=== PATIENT | female | born 1980 | race Caucasian/White ===

== ENCOUNTER 2020-07-20 14:11 | Outpatient (REF) | payer OTHER, SELFPAY ==
[2020-07-20 14:56] LABS: Eosinophils Percent Auto 0.2 % (0-4); Hematocrit 34.7 % (37-47); Hemoglobin 10.4 g/dl (12.0-16.0); Imm Gran Abs Auto 0.01 X10*3/uL (0.00-0.03); Imm Gran Pct Auto 0.2 % (0.0-0.4); MANUAL DIFF FLAG SCAN; SCAN SMEAR FLAG 1
[2020-07-20 14:58] LABS: Basophils Percent Auto 0.4 % (0-2); Lymphocytes Absolute Auto 1.2 X10*3/uL (1.2-4.9); Lymphocytes Percent Auto 24.8 % (20-40); Mean Corpuscular Hemoglobin 22.1 pg (27.0-33.0); Mean Corpuscular Volume 73.7 fL (80-98); Mean Platelet Volume 11.9 fL (9.4-12.3); Monocytes Absolute Auto 0.5 X10*3/uL (0.1-1.2); Monocytes Percent Auto 10.6 % (2-11); Neutrophils Percent Auto 63.8 % (45-73); Platelet Count 296 X10*3/uL (160-400); Red Blood Count 4.71 X10*6/uL (4.20-5.50); Red Cell Distribution Width 18.6 % (11.0-16.0); White Blood Count 4.7 X10*3/uL (4.8-10.8)
[2020-07-20 14:59] LABS: PLT ABN DIST 1
[2020-07-20 15:18] LABS: Alanine Aminotransferase 11 U/L (0-31); Albumin Level 4.6 g/dL (3.5-5.0); Alkaline Phosphatase 88 U/L (39-117); Anion Gap 12 (12-20); Aspartate Amino Transferase 17 U/L (5-31); Bilirubin Total 0.5 mg/dL (0.0-1.0); Blood Urea Nitrogen 13 mg/dL (9-16); Calcium 9.4 mg/dL (8.4-10.2); Carbon Dioxide 26 mmol/L (22-29); Chloride 106 mmol/L (96-108); Cholesterol 214 mg/dL; Estimated Glomerular Filt Rate > 60; Glucose Random 88 mg/dL (60-115); HDL Cholesterol 79 mg/dL; LDL Cholesterol Calculated 123 mg/dl; Potassium 4.5 mmol/l (3.3-5.1); Sodium 139 mmol/L (135-145); Total Protein 7.9 g/dL (6.5-8.0); Triglycerides 64 mg/dL
[2020-07-20 15:24] LABS: Iron 22 mcg/dL (30-160)
[2020-07-20 15:38] LABS: Ferritin 2 ng/mL (10-250); Thyroid Stimulating Hormone 0.62 mIU/mL (0.32-4.0)
[2020-07-20 15:42] LABS: Vitamin B12 264 pg/mL (200-900)
[2020-07-20 15:46] LABS: Erythrocyte Sedimentation Rate 16 MM/HR (0-20)
[2020-07-20 15:49] LABS: Percent Iron Saturation 4 % (15-50); Total Iron Binding Capacity 569 mcg/dL (228-428); Unsaturated Iron Binding 547 ug/dL
[2020-07-22 03:02] LABS: Lyme Abs Screen <0.90 index
[2020-07-22 18:27] LABS: Anti Nuclear Antibody Screen NEGATIVE (NEGATIVE)
== END 2020-07-20 14:12 | disposition home or self-care (01) ==
LOC: HO.LAB 14:11
PROVIDERS: Absent Provider Internal Medicine; PCP Internal Medicine; Visit Provider Psychiatry & Neurology Neurology
DX: R51.9 Headache, unspecified (principal); M79.7 Fibromyalgia; D50.8 Other iron deficiency anemias; R53.83 Other fatigue
CPT/HCPCS: 36415; 80053; 80061; 82550; 82607; 82728; 83540; 84443; 85025; 85652; 86038; 86039; 86140; 86618

== ENCOUNTER → 2020-08-24 13:52 | Outpatient (BNVA) | payer OTHER, SELFPAY | PROVIDERS: PCP Internal Medicine; Referring Provider Internal Medicine; Visit Provider Student in an Organized Health Care Education/Training Program | DX: Z76.89 Persons encountering health services in other specified circumstances (principal) ==

== ENCOUNTER 2020-09-13 12:39 | Outpatient (REF) | payer OTHER, SELFPAY ==
[2020-09-13 13:18] LABS: MANUAL DIFF FLAG NO
[2020-09-13 13:26] LABS: Basophils Percent Auto 0.4 % (0-2); Eosinophils Absolute Auto 0.1 X10*3/uL (0.0-0.4); Eosinophils Percent Auto 1.8 % (0-4); Hematocrit 39.4 % (37-47); Hemoglobin 12.4 g/dl (12.0-16.0); Imm Gran Abs Auto 0.01 X10*3/uL (0.00-0.03); Imm Gran Pct Auto 0.2 % (0.0-0.4); Lymphocytes Absolute Auto 1.3 X10*3/uL (1.2-4.9); Lymphocytes Percent Auto 29.4 % (20-40); Mean Corpuscular HGB Conc 31.5 g/dl (31.0-35.0); Mean Corpuscular Hemoglobin 24.9 pg (27.0-33.0); Mean Corpuscular Volume 79.3 fL (80-98); Monocytes Absolute Auto 0.4 X10*3/uL (0.1-1.2); Monocytes Percent Auto 8.1 % (2-11); Neutrophils Absolute Auto 2.7 X10*3/uL (2.0-8.3); Neutrophils Percent Auto 60.1 % (45-73); Platelet Count 208 X10*3/uL (160-400); Red Blood Count 4.97 X10*6/uL (4.20-5.50); Red Cell Distribution Width 28.8 % (11.0-16.0); White Blood Count 4.5 X10*3/uL (4.8-10.8)
[2020-09-13 13:41] LABS: Alanine Aminotransferase 15 U/L (0-31); Albumin Level 4.6 g/dL (3.5-5.0); Alkaline Phosphatase 81 U/L (39-117); Anion Gap 10 (12-20); Aspartate Amino Transferase 16 U/L (5-31); Bilirubin Total 0.7 mg/dL (0.0-1.0); Blood Urea Nitrogen 14 mg/dL (9-16); C Reactive Protein 0.14 mg/dL (< or = 0.50); Calcium 8.8 mg/dL (8.4-10.2); Carbon Dioxide 28 mmol/L (22-29); Chloride 106 mmol/L (96-108); Estimated Glomerular Filt Rate > 60; Glucose Random 87 mg/dL (60-115); Potassium 4.1 mmol/l (3.3-5.1); Rheumatoid Factor < 15.0 IU/mL (<15.0); Sodium 140 mmol/L (135-145); Total Protein 7.5 g/dL (6.5-8.0)
[2020-09-13 14:09] LABS: Erythrocyte Sedimentation Rate 6 MM/HR (0-20)
[2020-09-14 15:13] LABS: Cyclic Citrullinated Peptide <16 UNITS
[2020-09-14 16:22] LABS: Anti Nuclear Antibody Screen NEGATIVE (NEGATIVE)
[2020-09-15 15:32] LABS: Antibody to SS-A Antigen <1.0 NEG AI (<1.0 NEG); Antibody to SS-B Antigen <1.0 NEG AI (<1.0 NEG)
[2020-09-16 16:27] LABS: Vitamin D 25-OH, D2 <4 ng/mL; Vitamin D 25-OH, D3 12 ng/mL; Vitamin D 25-OH, Total 12 ng/mL (30-100)
== END 2020-09-13 12:40 | disposition home or self-care (01) ==
LOC: HO.LAB 12:39
PROVIDERS: Visit Provider Student in an Organized Health Care Education/Training Program
DX: M25.50 Pain in unspecified joint (principal)
CPT/HCPCS: 36415; 80053; 82306; 85025; 85652; 86038; 86039; 86140; 86200; 86235; 86431

== ENCOUNTER → 2020-10-12 13:59 | Outpatient (BNVA) | payer OTHER, SELFPAY | PROVIDERS: PCP Internal Medicine; Visit Provider Student in an Organized Health Care Education/Training Program | DX: Z76.89 Persons encountering health services in other specified circumstances (principal) ==

== ENCOUNTER 2020-11-10 09:45 | Outpatient (REF) | payer OTHER, SELFPAY ==
[2020-11-10 10:38] LABS: Basophils Percent Auto 0.5 % (0-2); MANUAL DIFF FLAG SCAN; SCAN SMEAR FLAG 1
[2020-11-10 10:40] LABS: Eosinophils Absolute Auto 0.1 X10*3/uL (0.0-0.4); Eosinophils Percent Auto 1.7 % (0-4); Hematocrit 45.5 % (37-47); Imm Gran Abs Auto 0.03 X10*3/uL (0.00-0.03); Imm Gran Pct Auto 0.5 % (0.0-0.4); Lymphocytes Absolute Auto 1.6 X10*3/uL (1.2-4.9); Lymphocytes Percent Auto 26.5 % (20-40); Mean Corpuscular Hemoglobin 28.7 pg (27.0-33.0); Monocytes Absolute Auto 0.5 X10*3/uL (0.1-1.2); Neutrophils Absolute Auto 3.7 X10*3/uL (2.0-8.3); Neutrophils Percent Auto 62.8 % (45-73); PLT ABN DIST 1; Platelet Count 233 X10*3/uL (160-400); Red Blood Count 5.23 X10*6/uL (4.20-5.50); Red Cell Distribution Width 21.8 % (11.0-16.0); White Blood Count 5.9 X10*3/uL (4.8-10.8)
[2020-11-10 11:21] LABS: Alanine Aminotransferase 17 U/L (0-31); Albumin Level 4.6 g/dL (3.5-5.0); Alkaline Phosphatase 104 U/L (39-117); Anion Gap 12 (12-20); Aspartate Amino Transferase 16 U/L (5-31); Bilirubin Total 0.6 mg/dL (0.0-1.0); Blood Urea Nitrogen 16 mg/dL (9-16); Calcium 9.4 mg/dL (8.4-10.2); Carbon Dioxide 26 mmol/L (22-29); Chloride 110 mmol/L (96-108); Estimated Glomerular Filt Rate > 60; Glucose Random 104 mg/dL (60-115); Potassium 4.6 mmol/L (3.3-5.1); Sodium 143 mmol/L (135-145); Total Protein 7.8 g/dL (6.5-8.0)
[2020-11-10 11:35] LABS: Ferritin 11 ng/mL (10-250); Thyroid Stimulating Hormone 1.84 uIU/mL (0.32-4.0)
== END 2020-11-10 09:46 | disposition home or self-care (01) ==
LOC: HO.LAB 09:45
PROVIDERS: PCP Internal Medicine; Visit Provider Internal Medicine
DX: Z00.01 Encounter for general adult medical examination with abnormal findings (principal); D50.8 Other iron deficiency anemias; E03.9 Hypothyroidism, unspecified; G47.00 Insomnia, unspecified
CPT/HCPCS: 36415; 80053; 82728; 84443; 85025

== ENCOUNTER → 2020-12-21 11:41 | Outpatient (BNVA) | payer OTHER, SELFPAY | PROVIDERS: PCP Internal Medicine; Visit Provider Obstetrics & Gynecology ==

== ENCOUNTER 2021-03-09 15:01 | Outpatient (REF) | payer OTHER, SELFPAY ==
--- NOTE | ~2021-03-09 | US_ITS ---
EXAMINATION: PELVIC ULTRASOUND CLINICAL INFORMATION: Menorrhagia COMPARISON: None TECHNIQUE: Transabdominal and transvaginal pelvic ultrasound was performed. Transvaginal exam was performed for better visualization of the uterus and ovaries. FINDINGS: The uterus is anteverted and measures 6.3 x 3 x 3.5 cm in dimension. No focal uterine lesion is seen. There is an IUD in the uterus in satisfactory position. Endometrial thickness measures 1.3 cm. The ovaries are normal-appearing. The right ovary measures 4.5 x 2.7 x 2 cm. The left ovary measures 3.7 x 1.7 x 1.5 cm. There is no fluid in the pelvis. US/US OB pelvic and transvaginal IMPRESSION: IUD in the uterus in satisfactory position. Otherwise unremarkable exam.
== END 2021-03-09 15:02 | disposition home or self-care (01) ==
LOC: HO.US 15:01
PROVIDERS: PCP Internal Medicine; Visit Provider Internal Medicine
DX: N92.0 Excessive and frequent menstruation with regular cycle (principal)
CPT/HCPCS: 76801; 76817

== ENCOUNTER 2021-04-12 09:41 | Day surgery (SDC) | payer OTHER, SELFPAY ==
--- NOTE | ~2021-04-12 | FL_ITS ---
EXAMINATION: XR LUMBAR PUNCTURE CLINICAL INFORMATION: Headache. Rule out pseudotumor cerebri COMPARISON: None TECHNIQUE: Following explaining fluoroscopy-guided lumbar puncture procedure, benefits and risks, written consent was obtained. Patient was placed prone on fluoroscopy table and low back area was cleaned and draped in usual sterile manner. 1% lidocaine was injected at puncture site overlying the L4-L5 disc level. A 22-gauge spinal needle was then inserted from a left anterolateral approach intrathecally. After observing CSF return patient was placed in left lateral decubitus. Opening CSF pressure was obtained. Subsequently fluid was collected in 4 test tubes. Postprocedure stylet was reintroduced and needle withdrawn. Complete hemostasis achieved at puncture site. Patient tolerated procedure extremely well. FINDINGS: On this image lumbar spine does maintain lumbar lordosis. The vertebral heights and alignment is normal. There is no visible bony abnormality. The opening CSF pressure measured 10 cm of water. Approximately 10.5 mL of clear CSF fluid collected in 4 test tubes and sent to lab as requested. FLUOROSCOPY TIME: 1.3 minutes DOSE AREA PRODUCT: 18.684 uGy-m2 (microgray-meter squared) FL/FL guided lumbar puncture LP IMPRESSION: Successful fluoroscopy-guided lumbar puncture performed at L4-L5 disc level.
[2021-04-12 10:14] VITALS: BMI 32.5
[2021-04-12 10:49] LABS: MANUAL DIFF FLAG NO
[2021-04-12 10:52] LABS: Basophils Percent Auto 0.4 % (0-2); Eosinophils Absolute Auto 0.2 X10*3/uL (0.0-0.4); Eosinophils Percent Auto 2.8 % (0-4); Hematocrit 43.2 % (37-47); Hemoglobin 14.6 g/dl (12.0-16.0); Imm Gran Abs Auto 0.02 X10*3/uL (0.00-0.03); Imm Gran Pct Auto 0.3 % (0.0-0.4); Lymphocytes Absolute Auto 1.5 X10*3/uL (1.2-4.9); Lymphocytes Percent Auto 20.6 % (20-40); Mean Corpuscular HGB Conc 33.8 g/dl (31.0-35.0); Mean Corpuscular Hemoglobin 31.5 pg (27.0-33.0); Mean Corpuscular Volume 93.3 fL (80-98); Mean Platelet Volume 12.2 fL (9.4-12.3); Monocytes Absolute Auto 0.6 X10*3/uL (0.1-1.2); Monocytes Percent Auto 8.2 % (2-11); Neutrophils Absolute Auto 4.8 X10*3/uL (2.0-8.3); Neutrophils Percent Auto 67.7 % (45-73); Platelet Count 215 X10*3/uL (160-400); Red Blood Count 4.63 X10*6/uL (4.20-5.50); Red Cell Distribution Width 14.8 % (11.0-16.0)
[2021-04-12 11:04] LABS: Partial Thromboplastin Time 32.6 SEC (24.1-38.0)
[2021-04-12 12:10] VITALS: BP 112/69; PULSE 69; RESP 20; TEMP 36.8; O2SAT 99
[2021-04-12 12:40] VITALS: BP 106/70; PULSE 67; RESP 20; O2SAT 99
[2021-04-12 12:52] LABS: CSF Appearance Clear, Colorless
[2021-04-12 12:53] LABS: CSF Tube # 1
[2021-04-12 13:03] LABS: Glucose CSF 57 mg/dL; Total Protein CSF 59.6 mg/dL (15-45)
[2021-04-12 13:09] VITALS: BP 115/70; PULSE 67; RESP 20; O2SAT 100
[2021-04-12 13:54] LABS: Appearance CSF CLEAR; CSF Monos 16 %; CSF Tube # 4; Color CSF COLORLESS; Lymphocytes CSF 64 %; Neutrophils CSF 20 %; White Blood Cell CSF 2 MM*3
[2021-04-12 13:55] LABS: Red Blood Cell CSF 439 MM*3
[2021-04-12 14:10] VITALS: BP 113/58; PULSE 78; RESP 20; O2SAT 100
[2021-04-12 15:10] VITALS: BP 113/66; PULSE 81; RESP 20; TEMP 36.7; O2SAT 100
== END 2021-04-12 15:20 | disposition home or self-care (01) ==
PROVIDERS: Psychiatry & Neurology Neurology; Radiology Diagnostic Radiology; PCP Internal Medicine; Visit Provider Radiology Diagnostic Radiology
PROC: 009U3ZZ Drainage of Spinal Canal, Percutaneous Approach (ICD-10-PCS; CPT 62270; principal; 2021-04-12 11:00)
DX: R51.9 Headache, unspecified (principal); M79.7 Fibromyalgia; E03.9 Hypothyroidism, unspecified; D50.9 Iron deficiency anemia, unspecified; Z79.899 Other long term (current) drug therapy
CPT/HCPCS: 36415; 62328; 82945; 84157; 85025; 85610; 85730; 87015; 87070; 87205; 89051

== ENCOUNTER 2021-08-16 10:11 | Outpatient (REF) | payer OTHER, SELFPAY ==
[2021-08-16 10:44] LABS: MANUAL DIFF FLAG NO
[2021-08-16 10:59] LABS: Basophils Percent Auto 0.5 % (0-2); Eosinophils Absolute Auto 0.2 X10*3/uL (0.0-0.4); Hematocrit 44.1 % (37.0-47.0); Hemoglobin 14.6 g/dl (12.0-16.0); Imm Gran Abs Auto 0.01 X10*3/uL (0.00-0.03); Imm Gran Pct Auto 0.2 % (0.0-0.4); Lymphocytes Absolute Auto 1.4 X10*3/uL (1.2-4.9); Lymphocytes Percent Auto 24.4 % (20-40); Mean Corpuscular HGB Conc 33.1 g/dl (31.0-35.0); Mean Corpuscular Hemoglobin 31.4 pg (27.0-33.0); Mean Corpuscular Volume 94.8 fL (80.0-98.0); Mean Platelet Volume 12.6 fL (9.4-12.3); Monocytes Absolute Auto 0.5 X10*3/uL (0.1-1.2); Monocytes Percent Auto 9.2 % (2-11); Neutrophils Absolute Auto 3.4 x10*3/uL (2.0-8.3); Neutrophils Percent Auto 61.7 % (45-73); Platelet Count 198 X10*3/uL (160-400); Red Blood Count 4.65 X10*6/uL (4.20-5.50); Red Cell Distribution Width 13.3 % (11.0-16.0); White Blood Count 5.5 X10*3/uL (4.8-10.8)
[2021-08-16 11:40] LABS: Alanine Aminotransferase 16 U/L (0-31); Albumin Level 4.3 g/dL (3.5-5.0); Alkaline Phosphatase 96 U/L (39-117); Anion Gap 11 (12-20); Aspartate Amino Transferase 14 U/L (5-31); Bilirubin Total 0.5 mg/dL (0.0-1.0); Blood Urea Nitrogen 14 mg/dL (9-16); Calcium 9.3 mg/dL (8.4-10.2); Carbon Dioxide 24 mmol/L (22-29); Chloride 109 mmol/L (96-108); Cholesterol 192 mg/dL; Estimated Glomerular Filt Rate > 60; Glucose Random 93 mg/dL (60-115); HDL Cholesterol 77 mg/dL; LDL Cholesterol Calculated 102 mg/dl; Potassium 4.4 mmol/L (3.3-5.1); Sodium 140 mmol/L (135-145); Total Protein 7.3 g/dL (6.5-8.0); Triglycerides 67 mg/dL
[2021-08-16 12:02] LABS: Thyroid Stimulating Hormone 1.56 uIU/mL (0.32-4.0)
== END 2021-08-16 10:12 | disposition home or self-care (01) ==
LOC: HO.LAB 10:11
PROVIDERS: PCP Internal Medicine; Visit Provider Internal Medicine
DX: D50.8 Other iron deficiency anemias (principal); E03.8 Other specified hypothyroidism; M79.7 Fibromyalgia; N92.4 Excessive bleeding in the premenopausal period
CPT/HCPCS: 36415; 80053; 80061; 84443; 85025

== ENCOUNTER → 2021-12-21 14:49 | Outpatient (BNVA) | payer OTHER, SELFPAY | PROVIDERS: PCP Internal Medicine; Referring Provider Internal Medicine; Visit Provider Physician Assistant | DX: Z13.89 Encounter for screening for other disorder (principal) ==

== ENCOUNTER 2021-12-29 12:04 | Outpatient (REF) | payer OTHER, SELFPAY ==
[2021-12-29 13:38] LABS: Alanine Aminotransferase 20 U/L (0-31); Albumin Level 4.3 g/dL (3.5-5.0); Alkaline Phosphatase 91 U/L (39-117); Anion Gap 12 (12-20); Aspartate Amino Transferase 17 U/L (5-31); Bilirubin Total 0.4 mg/dL (0.0-1.0); Blood Urea Nitrogen 13 mg/dL (9-16); Calcium 9.9 mg/dL (8.4-10.2); Carbon Dioxide 29 mmol/L (22-29); Chloride 104 mmol/L (96-108); Estimated Glomerular Filt Rate > 60; Glucose Random 97 mg/dL (60-115); Potassium 4.9 mmol/L (3.3-5.1); Sodium 140 mmol/L (135-145); Total Protein 7.4 g/dL (6.5-8.0)
== END 2021-12-29 12:05 | disposition home or self-care (01) ==
LOC: HO.LAB 12:04
PROVIDERS: PCP Internal Medicine; Visit Provider Internal Medicine
DX: Z00.00 Encounter for general adult medical examination without abnormal findings (principal); M79.7 Fibromyalgia; E03.8 Other specified hypothyroidism; E66.9 Obesity, unspecified; I26.99 Other pulmonary embolism without acute cor pulmonale; Z98.84 Bariatric surgery status
CPT/HCPCS: 36415; 80053; 84443

== ENCOUNTER 2023-01-04 15:52 | Outpatient (REF) | payer OTHER, SELFPAY ==
--- NOTE | ~2023-01-04 | MM_ITS ---
EXAMINATION: MM SCREENING DIGITAL BREAST TOMOSYNTHESIS, BILATERAL CLINICAL INFORMATION: Screening. Asymptomatic. The lifetime risk of breast cancer based on the Tyrer-Cuzick Model is 22.3%. Additional annual screening with breast MRI may be of benefit in women with a score of 20% or greater. COMPARISON: Mammography: 11/01/2021. TECHNIQUE: Digital mammography is performed in craniocaudal and mediolateral oblique views along with computer-aided detection (CAD). Digital breast tomosynthesis is performed in implant-displaced craniocaudal and implant-displaced mediolateral oblique views along with computer-aided detection (CAD). Synthesized 2D images are generated from the tomosynthesis. FINDINGS: There are scattered areas of fibroglandular density (ACR BI-RADS breast composition Category b). On the right breast mediolateral oblique implant displaced view about the deep inferior aspect, there is an asymmetric density which may be postoperative in nature but which I cannot definitely identify on prior study. Recommend spot compression view and possible ultrasound if there is persistence of density. About the inferior aspect of the left breast on nondisplaced mediolateral oblique view, there is an asymmetric density for which I do not definitely see a correlate on prior study. On left middle oblique displaced image, this area may be compressed out. However, it is difficult to tell whether the posterior most aspect of it is included on the image displaced view. Recommend bilateral spot compression views as well as full-field 90 degree imaging on image displaced right breast and nondisplaced left view. MM/MM tomosynthesis screen imp BI IMPRESSION: Bilateral breast densities for further evaluation. ASSESSMENT: BI-RADS 0: Incomplete - Need Additional Imaging Evaluation. RECOMMENDATION: 1. Additional views of the bilateral breasts. 2. Targeted ultrasound if warranted after review of the additional views. 3. Radiology department staff will contact the patient for additional imaging.
== END 2023-01-04 15:53 | disposition home or self-care (01) ==
LOC: HO.MAMMO 15:52
PROVIDERS: Visit Provider Internal Medicine
DX: Z12.31 Encounter for screening mammogram for malignant neoplasm of breast (principal)
CPT/HCPCS: 77063; 77067

== ENCOUNTER 2023-01-11 14:37 | Outpatient (REF) | payer OTHER, SELFPAY ==
--- NOTE | ~2023-01-11 | MM_ITS ---
EXAMINATION: MM DIAGNOSTIC DIGITAL BREAST TOMOSYNTHESIS, BILATERAL CLINICAL INFORMATION: Recall from screening for question of asymmetric density lower left breast and lower right breast. Family history breast cancer, mother. The lifetime risk of breast cancer based on the Tyrer-Cuzick Model is 20%. COMPARISON: Mammography: 01/04/2023, outside mammography 11/01/2021 ([facility]). TECHNIQUE: Bilateral digital mammography is performed in implant displaced spot left MLO view and implant displaced spot right MLO view. In addition, digital breast tomosynthesis is performed in bilateral implant displaced MLO views with synthesized 2-D images are generated from the tomography. FINDINGS: There are scattered areas of fibroglandular density (ACR BI-RADS breast composition Category b). Breast tissue composition borders on predominantly fatty. The additional views are unremarkable. There is no asymmetric density or mass. Results are discussed with the patient at time of visit, using an clinical staff educator. MM/MM tomosynthesis diagnostic BI IMPRESSION: No mammographic evidence of malignancy. ASSESSMENT: BI-RADS 1: Negative RECOMMENDATION: Routine annual mammography screening. This patient's information was entered into a reminder system with a target due date for their next mammogram.
== END 2023-01-11 14:38 | disposition home or self-care (01) ==
LOC: HO.MAMMO 14:37
PROVIDERS: PCP Internal Medicine; Visit Provider Internal Medicine
DX: R92.2 Inconclusive mammogram (principal); Z80.3 Family history of malignant neoplasm of breast
CPT/HCPCS: 77062; 77066

== ENCOUNTER 2023-02-28 13:44 | Outpatient (REF) | payer OTHER, SELFPAY ==
[2023-02-28 14:37] LABS: Rheumatoid Factor < 13.0 IU/mL (<15.0)
[2023-02-28 15:25] LABS: Erythrocyte Sedimentation Rate 10 MM/HR (0-20)
[2023-03-06 14:39] LABS: Anti Nuclear Antibody Screen NEGATIVE (NEGATIVE)
[2023-03-07 10:59] LABS: Cyclic Citrullinated Peptide <16 UNITS
== END 2023-02-28 13:45 | disposition home or self-care (01) ==
LOC: HO.LAB 13:44
PROVIDERS: PCP Internal Medicine; Visit Provider Internal Medicine
DX: F32.4 Major depressive disorder, single episode, in partial remission (principal); M13.0 Polyarthritis, unspecified; M79.7 Fibromyalgia; Z98.84 Bariatric surgery status
CPT/HCPCS: 36415; 85652; 86038; 86200; 86431

== ENCOUNTER 2023-05-07 14:56 | Outpatient (AMB) | payer OTHER, SELFPAY ==
--- NOTE | 2023-05-07 14:59 | A.OFFVIS_ITS ---
Intake VS Expanded 05/07/23 15:00 Height 5 ft 3 in Weight 222 lb BMI 39.3 BP 128/60 Blood Pressure Location Rt brachial Blood Pressure Position Sitting Pulse 95 Pulse Source Pulse Oximeter Temp 96.9 F Temperature Source Tympanic Pulse Oximetry 96 Oxygen Delivery Method Room Air Body Fat 97.6 Body Fat Percentage 44.0 Free Fat Mass 124.2 Muscle Mass 118.0 Visceral Mass 12.0 Water Mass 88.6 BMR 1,740 Intake Visit Reasons: (OV) Re-Est SWL Allergies No Known Allergies Allergy (Verified 05/07/23 15:04) Medication List - Last Reconciled 05/07/23 by Zandra Jackson PA-C amitriptyline 75 mg PO DAILY cholecalciferol (vitamin D3) 1,250 mcg PO QWEEK cyclobenzaprine 10 mg PO BEDTIME duloxetine 50 mg PO DAILY duloxetine 60 mg PO DAILY ibuprofen 600 mg PO Q8H PRN levothyroxine (Synthroid) 125 mcg PO DAILY topiramate 50 mg PO DAILY HPI HPI Comments History of Present Illness Details This is a 41 year old woman s/p open RNYGBP in 2013,with subsequent abdominoplasty who is here to re-start SWL program for revision of GBP. Pre op GBP weight was 258 lbs and lowest weight was 152 lbs, started regain about 7 years ago with most of weight gain in last 3-4 years. She had HELMET BINDER? Aug 2018 at 175.4 lbs used our meal plan for one week - felt hungry ant stopped, She re- started again November 2022 at 223 lbs and did not return for another appt, she did not get labs on UGI done either. She feels she is ready to commit to our program now that she notices how the extra weight effects her medical conditions. She had PE after breast surgery about 14 years ago when on OCP's. Has Mirena IUD in place now. Used anticoagulants for 6 months only. Wakes up at 3 am , bed at 7;30 pm. 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 3:30 am - coffee whole milk , 1 tsp sugar. 5 am - cereal with Lactaid 7:30 am - sandwich or scrambled eggs with water 1pm - rice with meat or pizza, hamburger with water or ocassional Coke. Does not eat vegetables 4:30 pm - meat and root vegetables with rice. water may have a slice or cheese or crackers before going to bed. alcohol- a few beers 3 times per month, no tobacco or marijuana. Exercise - none, has stationary bike. [facility] Medical History (Updated 12/29/21 @ 15:15 by Zandra Jackson PA-C) Fibromyalgia Hypothyroidism Pulmonary embolism Surgical History Gastric bypass status for obesity H/O abdominoplasty H/O breast reconstruction History of appendectomy Family History Mother CVD (cardiovascular disease) Bone cancer HTN (hypertension) Diabetes Thyroid disease Father Bone cancer HTN (hypertension) Diabetes Social History Alcohol intake: current Alcohol intake frequency: holidays/special occasions only Patient Tobacco Use Status: Never used Tobacco Female Reproductive History Menstrual Age of Menarche: 12 Assessment & Plan Assessment & Plan (1) Obesity: Code(s): E66.9 - Obesity, unspecified Plan: This is the patients 3rd time restarting our SWL program for revision of previous GBP. She is aware she will need to lose 22 lbs and complete all pre operative work up. She understands that once she has UGI Dr Quinones will decide whether she is an appropriate candidate for revision surgery. 1. Adequate sleep of 7-8 hours per night discussed 2. Healthy meal plan All meals/MR's need to take 20 minutes to complete coffee with 1% Fairlife milk and no sugar 5 am - 30 gram shake 8 am -bar 1 pm- bshake 4:30 pm- dinner of 4 oz lean protein, 4 oz vegetable, 1 serving fruit Exercise - Cardio 5 d week bicycle for 200 calories. walk 2 miles outside in 45 m inutes for 300 caloires or LS 2 mile videos. The importance of avoiding and breast feeding for at least 18 months after bariatric surgery was discussed in the information session and was reinforced today. Pt will purchase body composition analyzer (recommended list given to patient) and weight herself weekly. Next appt with me in 3 weeks. Text me with any questions and weekly weights. Patient is morbidly obese and is not considered stable at this time.?I spent a total of 45 minutes reviewing/updating records, examining the patient and counseling the patient on weight management as detailed above. (2) Gastric bypass status for obesity: Code(s): Z98.84 - Bariatric surgery status (3) Fibromyalgia: Code(s): M79.7 - Fibromyalgia (4) Hypothyroidism: Code(s): E03.9 - Hypothyroidism, unspecified (5) Pulmonary embolism: Code(s): I26.99 - Other pulmonary embolism without acute cor pulmonale Plan: Remote hisotry 13 years ago after breast surgery while on OCP's. Use d anticoagulation for 6 months only. Orders: Orders Vitamin B12 and Folate Today E03.9 - Hypothyroidism, unspecified, E66.9 - Obesity, unspecified, Z98.84 - Bariatric surgery status Comprehensive Met. Panel Today E03.9 - Hypothyroidism, unspecified, E66.9 - Obesity, unspecified, Z98.84 - Bariatric surgery status C Reactive Protein Today E03.9 - Hypothyroidism, unspecified, E66.9 - Obesity, unspecified, Z98.84 - Bariatric surgery status Ferritin Today E03.9 - Hypothyroidism, unspecified, E66.9 - Obesity, unspecified, Z98.84 - Bariatric surgery status Hemoglobin A1c Today E03.9 - Hypothyroidism, unspecified, E66.9 - Obesity, unspecified, Z98.84 - Bariatric surgery status Insulin Today E03.9 - Hypothyroidism, unspecified, E66.9 - Obesity, unspecified, Z98.84 - Bariatric surgery status IRON PROFILE Today E03.9 - Hypothyroidism, unspecified, E66.9 - Obesity, unspecified, Z98.84 - Bariatric surgery status Lipid Panel Today E03.9 - Hypothyroidism, unspecified, E66.9 - Obesity, unspecified, Z98.84 - Bariatric surgery status PTHI Today E03.9 - Hypothyroidism, unspecified, E66.9 - Obesity, unspecified, Z98.84 - Bariatric surgery status TSH reflex Free T4 Today E03.9 - Hypothyroidism, unspecified, E66.9 - Obesity, unspecified, Z98.84 - Bariatric surgery status Vitamin A Today E03.9 - Hypothyroidism, unspecified, E66.9 - Obesity, unspecified, Z98.84 - Bariatric surgery status Vitamin B1 Today E03.9 - Hypothyroidism, unspecified, E66.9 - Obesity, unspecified, Z98.84 - Bariatric surgery status Vitamin D 25-OH Total Today E03.9 - Hypothyroidism, unspecified, E66.9 - Obesity, unspecified, Z98.84 - Bariatric surgery status Zinc Today E03.9 - Hypothyroidism, unspecified, E66.9 - Obesity, unspecified, Z98.84 - Bariatric surgery status FL upper GI w air Today E03.9 - Hypothyroidism, unspecified, E66.9 - Obesity, unspecified, Z98.84 - Bariatric surgery status Complete Blood Count Auto Diff Today E03.9 - Hypothyroidism, unspecified, E66.9 - Obesity, unspecified, Z98.84 - Bariatric surgery status H Pylori Breath Test Today E03.9 - Hypothyroidism, unspecified, E66.9 - Obesity, unspecified, Z98.84 - Bariatric surgery status US abdomen comp w elastography Today E03.9 - Hypothyroidism, unspecified, E66.9 - Obesity, unspecified, Z98.84 - Bariatric surgery status Referrals Behavioral Health Referral E03.9 - Hypothyroidism, unspecified, E66.9 - Obesity, unspecified, Z98.84 - Bariatric surgery status Nutrition/Dietitian Referral E03.9 - Hypothyroidism, unspecified, E66.9 - Obesity, unspecified, Z98.84 - Bariatric surgery status Coding Level of Care Code Est Pt Level 5 (30107) Diagnoses Obesity E66.9 Gastric bypass status for obesity Z98.84 Fibromyalgia M79.7 Hypothyroidism E03.9 Pulmonary embolism I26.99
[2023-05-07 15:00] VITALS: BP 128/60; PULSE 95; TEMP 36.1; O2SAT 96; BMI 39.3
== END 2023-05-07 15:49 | disposition home or self-care (01) ==
PROVIDERS: PCP Internal Medicine; Visit Provider Physician Assistant
DX: E66.9 Obesity, unspecified (principal); Z68.39 Body mass index [BMI] 39.0-39.9, adult; Z98.84 Bariatric surgery status; M79.7 Fibromyalgia
CPT/HCPCS: 99215

== ENCOUNTER 2023-05-07 14:56 | Outpatient (REF) | payer OTHER, SELFPAY ==
[2023-05-10 12:40] LABS: H Pylori Breath Test Negative (Negative)
== END 2023-05-07 14:57 | disposition home or self-care (01) ==
LOC: HO.LNP 14:56
PROVIDERS: PCP Internal Medicine; Visit Provider Physician Assistant
DX: E66.9 Obesity, unspecified (principal); M79.7 Fibromyalgia; E03.9 Hypothyroidism, unspecified; I26.99 Other pulmonary embolism without acute cor pulmonale; Z98.84 Bariatric surgery status
CPT/HCPCS: 83013

== ENCOUNTER 2023-05-16 07:35 | Outpatient (REF) | payer OTHER, SELFPAY ==
[2023-05-16 08:10] LABS: MANUAL DIFF FLAG NO
[2023-05-16 08:52] LABS: Basophils Percent Auto 0.7 % (0-2); Eosinophils Absolute Auto 0.1 X10*3/uL (0.0-0.4); Eosinophils Percent Auto 2.1 % (0-4); Hematocrit 42.4 % (37.0-47.0); Hemoglobin 14.2 g/dl (12.0-16.0); Imm Gran Abs Auto 0.01 X10*3/uL (0.00-0.03); Imm Gran Pct Auto 0.2 % (0.0-0.4); Lymphocytes Absolute Auto 1.3 X10*3/uL (1.2-4.9); Lymphocytes Percent Auto 23.6 % (20-40); Mean Corpuscular HGB Conc 33.5 g/dl (31.0-35.0); Mean Corpuscular Hemoglobin 29.9 pg (27.0-33.0); Mean Corpuscular Volume 89.3 fL (80.0-98.0); Mean Platelet Volume 12.9 fL (9.4-12.3); Monocytes Absolute Auto 0.4 X10*3/uL (0.1-1.2); Monocytes Percent Auto 7.8 % (2-11); Neutrophils Absolute Auto 3.7 x10*3/uL (2.0-8.3); Neutrophils Percent Auto 65.6 % (45-73); Platelet Count 234 X10*3/uL (160-400); Red Blood Count 4.75 X10*6/uL (4.20-5.50); Red Cell Distribution Width 13.7 % (11.0-16.0); White Blood Count 5.7 X10*3/uL (4.8-10.8)
[2023-05-16 09:02] LABS: Estimated Average Glucose 108 mg/dL; Hemoglobin A1c % 5.4 %
[2023-05-16 09:52] LABS: Alanine Aminotransferase 14 U/L (0-31); Albumin Level 4.3 g/dL (3.5-5.0); Alkaline Phosphatase 114 U/L (39-117); Anion Gap 11 (12-20); Aspartate Amino Transferase 13 U/L (5-31); Bilirubin Total 0.5 mg/dL (0.0-1.0); Blood Urea Nitrogen 12 mg/dL (9-16); C Reactive Protein 0.42 mg/dL (< or = 0.50); Calcium 9.5 mg/dL (8.4-10.2); Carbon Dioxide 25 mmol/L (22-29); Chloride 108 mmol/L (96-108); Cholesterol 177 mg/dL; Estimated Glomerular Filt Rate > 60; Glucose Random 92 mg/dL (60-115); HDL Cholesterol 62 mg/dL; Iron 126 mcg/dL (30-160); LDL Cholesterol Calculated 102 mg/dl; Percent Iron Saturation 32 % (15-50); Potassium 3.8 mmol/L (3.3-5.1); Sodium 140 mmol/L (135-145); Total Iron Binding Capacity 392 mcg/dL (228-428); Total Protein 7.8 g/dL (6.5-8.0); Triglycerides 65 mg/dL; Unsaturated Iron Binding 266 ug/dL
[2023-05-16 10:09] LABS: Ferritin 14 ng/mL (10-250); TSH reflex Free T4 1.06 uIU/mL (0.32-4.0)
[2023-05-16 10:23] LABS: Folate 10.4 ng/mL (> or = 4.0); Vitamin B12 1253 pg/mL (200-900)
[2023-05-16 10:30] LABS: Insulin 9 uU/mL (2-29)
[2023-05-18 16:53] LABS: Calcium (PTHI) 9.3 mg/dL (8.6-10.2); PTHI 43 pg/mL (16-77)
[2023-05-19 18:34] LABS: Zinc 81 mcg/dL (60-130)
[2023-05-21 11:59] LABS: Vitamin B1 9 nmol/L (8-30)
[2023-05-21 17:18] LABS: Vitamin A 31 mcg/dL (38-98)
== END 2023-05-16 07:36 | disposition home or self-care (01) ==
LOC: HO.LAB 07:35
PROVIDERS: PCP Internal Medicine; Visit Provider Physician Assistant
DX: E03.9 Hypothyroidism, unspecified (principal); E66.9 Obesity, unspecified; Z98.84 Bariatric surgery status
CPT/HCPCS: 36415; 80053; 80061; 82306; 82607; 82728; 82746; 83036; 83525; 83540; 83970; 84425; 84443; 84590; 84630; 85025; 86140

== ENCOUNTER 2023-05-22 14:29 | Outpatient (AMB) | payer OTHER, SELFPAY ==
--- NOTE | 2023-05-22 14:41 | A.OFFVIS_ITS ---
Intake VS Expanded 05/22/23 15:35 Height 5 ft 3 in Weight 221 lb BMI 39.1 Intake Visit Reasons: (OV) Initial Nutrition SWL Supervisor Underwriting Clerks Required: Yes Supervisor Underwriting Clerks Name: Jared [email or web address] Information Interpreted: non-clinical & clinical Allergies No Known Allergies Allergy (Verified 05/07/23 15:04) HPI Nutrition Presentation Details Re-est WASTE REDUCTION COORDINATOR weight 05/07/23 222 current weight 221# s/p open RNYGBP in [place] 2013,with subsequent abdominoplasty who is here to re- start SWL program for revision of GBP. Pre op GBP weight was 258 lbs and lowest weight was 152 lbs, started regain about 7 years ago with most of weight gain in last 3-4 years. She had WASTE REDUCTION COORDINATOR? Aug 2018 at 175.4 lbs used our meal plan for one week - felt hungry ant stopped, She re-started again November 2022 at 223 lbs and did not return for another appt, Reason for consult elevated BMI Diet Assmnt Details After seeing Zandra, she has started her nutrition plan. She cut out all carbs , but developed a headache that left her out of work for 2 days. Headache lasted 7 days without improvement in so she added carbs back into her diet, her headache went away. Caffeine consumption remained the same Breakfast oatmeal / farina 1/2 cup 2 slices bread with scrambled egg, vegetables, ham - I recommended decreasing to 1 slice of bread 1pm protein premier premade shake 4pm salad and meat, only a few times had plaintains She plans to continue to slowly decrease her carb intake i cannot exercise - but she is planning to go to the pool at the local [facility]. We also discussed doing yoga/Pilates for fibromyalgia pain, which may eventually help her become more active with cardio exercise SWL classes completed, scored well overall but struggled on class 4 (nutrition- 20%) this material was reviewed today and she demonstrates an understanding Dietary counseling reduction Who buys your food self and spouse Who prepares/cooks your food self and spouse Diagnosis Nutrition problem #1 overweight/obesity As related to (etiology) #1 excess energy intake and physical inactivity As evidenced by (sign/symptom) #1 high BMI Monitoring/Goals Nutrition problem monitoring total energy intake, level of knowledge/skill, total PRO intake, total CHO intake and weight Outcome progress progressing Learning/Education Readiness to learn good Stages of change action Educational materials provided Yes Most Recent Diabetes Results: Cholesterol 177 mg/dL 05/16/23 HDL Cholesterol 62 mg/dL 05/16/23 Triglycerides 65 mg/dL 05/16/23 Creatinine 0.69 mg/dL (0.5-1.4) 05/16/23 Blood Urea Nitrogen 12 mg/dL (9-16) 05/16/23 Sodium 140 mmol/L (135-145) 05/16/23 Potassium 3.8 mmol/L (3.3-5.1) 05/16/23 Chloride 108 mmol/L (96-108) 05/16/23 Carbon Dioxide 25 mmol/L (22-29) 05/16/23 Calcium 9.5 mg/dL (8.4-10.2) 05/16/23 AST 13 U/L (5-31) 05/16/23 ALT 14 U/L (0-31) 05/16/23 Total Protein 7.8 g/dL (6.5-8.0) 05/16/23 Albumin 4.3 g/dL (3.5-5.0) 05/16/23 [facility] Medical History (Updated 12/29/21 @ 15:15 by Zandra Jackson PA-C) Fibromyalgia Hypothyroidism Pulmonary embolism Surgical History Gastric bypass status for obesity H/O abdominoplasty H/O breast reconstruction History of appendectomy Family History Mother CVD (cardiovascular disease) Bone cancer HTN (hypertension) Diabetes Thyroid disease Father Bone cancer HTN (hypertension) Diabetes Social History Alcohol intake: current Alcohol intake frequency: holidays/special occasions o nly Patient Tobacco Use Status: Never used Tobacco Female Reproductive History Menstrual Age of Menarche: 12 Assessment & Plan Assessment & Plan (1) Gastric bypass status for obesity: Code(s): Z98.84 - Bariatric surgery status (2) Obesity (BMI 30-39.9): Code(s): E66.9 - Obesity, unspecified Patient Instructions: Patient is cleared from a nutrition standpoint for bariatric surgery. Educational requirements have been completed. We also reviewed and educated patient on nutrition label reading. Reviewed vitamin supplementation and commitment to protein shake for several months post surgery. Encouraged communication with office as needed Coding Level of Care Code Nutr Indiv Intake (44723) Diagnoses Gastric bypass status for obesity Z98.84 Obesity (BMI 30-39.9) E66.9 Time Spent (min) 35
[2023-05-22 15:35] VITALS: BMI 39.1
== END 2023-05-22 15:33 | disposition home or self-care (01) ==
PROVIDERS: PCP Internal Medicine; Visit Provider Dietitian, Registered
DX: Z98.84 Bariatric surgery status (principal); E66.9 Obesity, unspecified

== ENCOUNTER → 2023-05-22 14:29 | Outpatient (BNVA) | payer OTHER, SELFPAY | PROVIDERS: PCP Internal Medicine; Visit Provider Dietitian, Registered | DX: E66.9 Obesity, unspecified (principal); Z68.39 Body mass index [BMI] 39.0-39.9, adult; Z98.84 Bariatric surgery status; Z71.3 Dietary counseling and surveillance | CPT/HCPCS: 97802 ==

== ENCOUNTER 2023-05-24 10:33 | Outpatient (REF) | payer OTHER, SELFPAY ==
--- NOTE | ~2023-05-24 | FL_ITS ---
EXAMINATION: XR FLUOROSCOPY UPPER GI WITH AIR CLINICAL INFORMATION: Patient 42-year-old female, preop for gastric bypass revision. COMPARISON: 09/30/2018 upper GI series. TECHNIQUE: Standard technique dual air-contrast upper GI examination was performed utilizing thick and thin barium with effervescent granules. Numerous fluoroscopic spot images were obtained. FINDINGS: Imaged hypopharynx appears normal. No evidence of laryngeal penetration or aspiration. The esophagus is normal in caliber and contour. Feline esophagus incidentally noted, can be associated with reflux but is otherwise a benign finding. No evidence of additional mucosal abnormality or stricture. No masses. The gastric pouch and gastrojejunostomy have and an as expected appearance, with unremarkable appearing anastomotic site proximally. Contrast freely passed into the jejunum which has a normal mucosal fold pattern in diameter. Patient does have a small type I hiatus hernia. Minimal gastroesophageal reflux noted during the examination. The distal anastomosis has an unremarkable appearance, with mild reflux of contrast into the [place] duodenal sweep, which appears normal. No contrast refluxed into the excluded stomach. Cholecystectomy clips incidentally noted. FLUOROSCOPY TIME: 3.4 minutes 25 spot images obtained. DOSE AREA PRODUCT: 40.198 uGy-m2 (microgray-meter squared) FL/FL upper GI w air IMPRESSION: Esophagus normal in appearance without evidence of stricture, mass, or mucosal abnormality. 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 Small hiatus hernia, type I. Minimal gastroesophageal reflux noted during the course of the exam. Normal appearance to the postoperative gastric pouch and gastrojejunostomy. As expected appearance to the proximal and distal anastomosis with mild reflux into the [place] duodenum, but no reflux into the excluded stomach. The proximal jejunum has a normal caliber and mucosal fold pattern.
== END 2023-05-24 10:34 | disposition home or self-care (01) ==
LOC: HO.XRAY 10:33
PROVIDERS: Visit Provider Physician Assistant
DX: Z01.818 Encounter for other preprocedural examination (principal); E03.9 Hypothyroidism, unspecified; E66.9 Obesity, unspecified; Z98.84 Bariatric surgery status
CPT/HCPCS: 74246

== ENCOUNTER → 2023-05-24 10:35 | Outpatient (BNV) | payer OTHER, SELFPAY | PROVIDERS: Visit Provider Radiology Diagnostic Radiology | DX: Z01.818 Encounter for other preprocedural examination (principal) | CPT/HCPCS: 74246 ==

== ENCOUNTER 2023-05-30 14:57 | Outpatient (AMB) | payer OTHER, SELFPAY ==
--- NOTE | 2023-05-30 15:17 | MHC.OFFVISWM ---
Intake VS Expanded 05/30/23 15:24 Height 5 ft 3 in Weight 217 lb 9.6 oz BMI 38.5 BP 135/65 Blood Pressure Location Rt brachial Blood Pressure Position Sitting Pulse 97 Pulse Source Pulse Oximeter Temp 97.6 F Temperature Source Temporal Artery Scan Pulse Oximetry 96 Oxygen Delivery Method Room Air Body Fat 100.8 Body Fat Percentage 46.3 Free Fat Mass 116.8 Muscle Mass 110.8 Visceral Mass 13.0 Water Mass 83.6 BMR 1,653 Intake Visit Reasons: (OV) F/U SWL Allergies No Known Allergies Allergy (Verified 05/30/23 15:22) HPI HPI Comments History of Present Illness Details Preparing for revision of previous GBP. Starting weight was 223 lbs. TBWL is 4.1 lbs or 3 % TBWL. Has had headches for 3-4 days and felt hungry. Meal plan: 68 oz of Crystal light 3:30 am -coffee - 1 cup Fairlife with <1 tsp sugar 5am - oatmeal with Fairlife cinammon and small amt of sugar 7am - 2 scrambled eggs ham and vegetable. 1 slice bread, Crystal Light 12:30 pm - Premier shake - 30 minutes 4:30 - 3 - 4 oz meat with tostones or rice or salad - does not know amount Bed at 7pm Exercise plan:none.PT for arm twice a week. Pre op work up completed as follows: SWL classes - / BH appts - 05/[address] appts - cleared H pylori - negative Labs - done CXR and ECG - not done yet ULS - 05/31 UGI - IMPRESSION: ? Esophagus normal in appearance without evidence of stricture, mass, or mucosal abnormality. 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 ? Small hiatus hernia, type I. Minimal gastroesophageal reflux noted during the course of the exam. ? Normal appearance to the postoperative gastric pouch and gastrojejunostomy. As expected appearance to the proximal and distal anastomosis with mild reflux into the [place] duodenum, but no reflux into the excluded stomach. ? The proximal jejunum has a normal caliber and mucosal fold pattern.? ? UGI reviewed by Dr Quinones - recommends EGD be schedule. [facility] Medical History (Updated 12/29/21 @ 15:15 by Zandra Jackson PA-C) Fibromyalgia Hypothyroidism Pulmonary embolism Surgical History Gastric bypass status for obesity H/O abdominoplasty H/O breast reconstruction History of appendectomy Family History Mother CVD (cardiovascular disease) Bone cancer HTN (hypertension) Diabetes Thyroid disease Father Bone cancer HTN (hypertension) Diabetes Social History Alcohol intake: current Alcohol intake frequency: holidays/special occasions only Patient Tobacco Use Status: Never used Tobacco Female Reproductive History Menstrual Age of Menarche: 12 Physical Exam Vital Signs: Last Vital Signs Temp 97.6 F 05/30/23 15:24 Pulse 97 05/30/23 15:24 BP 135/65 05/30/23 15:24 Pulse Ox 96 05/30/23 15:24 Oxygen Delivery Method Room Air 05/30/23 15:24 BMI result Body Mass Index 38.5 Assessment & Plan Assessment & Plan (1) Obesity: Code(s): E66.9 - Obesity, unspecified Plan: Preparing for revision of GBP - will have EGD scheduled per Dr Kendrick 5am- leticia, stop oatmeal 9am- 2 eggs - no ham or bread 12:30 - shake 4:30 - 4 oz and 4 oz - 8 forks each Exercise - due to her fibromyalgia - it is difficult for her to find the time when she is not tired. Will do LS 2 miles on weekends and 2 days during weeknights or bike while watching TV. All upcoming appts reviewed with patient. Next appt with me in 3 weeks Patient is obese and is not considered stable at this time. I spent 30 minutes in total with patient reviewing/updating records, examining the patient and counseling the patient on weight management as detailed above. (2) Pulmonary embolism: Code(s): I26.99 - Other pulmonary embolism without acute cor pulmonale Orders: Orders ECG 12 lead EKG Today E03.9 - Hypothyroidism, unspecified, E66.9 - Obesity, unspecified, I26.99 - Other pulmonary embolism without acute cor pulmonale, M79.7 - Fibromyalgia, Z98.84 - Bariatric surgery status XR chest 2V Today E03.9 - Hypothyroidism, unspecified, E66.9 - Obesity, unspecified, I26.99 - Other pulmonary embolism without acute cor pulmonale, M79.7 - Fibromyalgia, Z98.84 - Bariatric surgery status Coding Level of Care Code Est Pt Level 4 (43431) Diagnoses Obesity E66.9 Pulmonary embolism I26.99
[2023-05-30 15:24] VITALS: BP 135/65; PULSE 97; TEMP 36.4; O2SAT 96; BMI 38.5
== END 2023-05-30 16:44 | disposition home or self-care (01) ==
PROVIDERS: PCP Internal Medicine; Visit Provider Physician Assistant
DX: E66.9 Obesity, unspecified (principal); Z68.38 Body mass index [BMI] 38.0-38.9, adult
CPT/HCPCS: 99214

== ENCOUNTER → 2023-05-30 14:57 | Outpatient (BNVA) | payer OTHER, SELFPAY | PROVIDERS: PCP Internal Medicine; Visit Provider Physician Assistant ==

== ENCOUNTER 2023-05-31 08:17 | Outpatient (REF) | payer OTHER, SELFPAY ==
--- NOTE | ~2023-05-31 | XR_ITS ---
EXAMINATION: XR CHEST CLINICAL INFORMATION: Obesity COMPARISON: None available. TECHNIQUE: 2 views of the chest were obtained. FINDINGS: Slight elevation the right hemidiaphragm. Bilateral low lung volumes. Right basilar atelectasis. No pneumothorax. Trachea is midline. Cardiac mediastinal silhouette is not enlarged. No large pleural effusion. Degenerative changes of the thoracolumbar spine. Soft tissues are unremarkable. Surgical clips in the right upper abdomen. XR/XR chest 2V IMPRESSION: 1. Slight elevation the right hemidiaphragm. 2. Bilateral low lung volumes. 3. Right basilar atelectasis.
--- NOTE | ~2023-05-31 | US_ITS ---
EXAMINATION: US COMPLETE ABDOMEN WITH LIVER ELASTOGRAPHY CLINICAL INFORMATION: Obesity. COMPARISON: None available. TECHNIQUE: Real-time imaging of the abdominal viscera. Noninvasive ultrasound liver fibrosis assessment is performed using Mary Ann ElastPQ point quantification shear wave elastography (2D-SWE) with a C5-2 MHz transducer. Multiple elastography samples are obtained. FINDINGS: PANCREAS: Normal. The visualized pancreatic head and body are normal in appearance. The remainder of the pancreas is obscured from visualization by the overlying bowel gas. ABDOMINAL AORTA: The proximal and distal aortic segments are normal in caliber. The mid abdominal aorta is obscured from visualization by overlapping bowel gas. INFERIOR VENA CAVA: Visualized portions are normal. LIVER: Normal. The liver demonstrates normal size, contour and echogenicity. No focal lesion or intrahepatic biliary duct dilatation. The right lobe measures 13.6 cm in length. The left lobe measures 7.9 cm in length. Portal flow is towards the liver (hepatopetal). Shear wave liver elastography median stiffness is 1.68 m/s (reference: normal median stiffness is 1.3 m/s or less). IQR/median stiffness to assess sampling precision is 0.33 (reference: good quality data set is IQR/median stiffness of 0.15 or less). GALLBLADDER: Surgically absent. COMMON BILE DUCT: Normal in caliber measuring 0.7 cm in diameter. RIGHT KIDNEY: Normal. No hydronephrosis. No renal calculi or focal parenchymal lesions. The kidney measures 11.9 cm in maximum dimension. LEFT KIDNEY: Normal. No hydronephrosis. No renal calculi or focal parenchymal lesions. The kidney measures 11.8 cm in maximum dimension. SPLEEN: Normal. The spleen measures 8.3 cm in maximum dimension. FREE FLUID: None. US/US abdomen comp w elastography IMPRESSION: Liver elastography: Although measurements appear to rule out compensated advanced chronic liver disease, there is statistical variability of the sampling which decreases accuracy. REFERENCE: Society of Radiologists in Ultrasound Liver Stiffness Thresholds (2020): LIVER STIFFNESS THRESHOLDS: *Liver Stiffness equal or less than 1.3 m/s: High probability of being normal. *Liver Stiffness less than 1.7 m/s: In the absence of other known clinical signs, rules out compensated advanced chronic liver disease. *Liver Stiffness 1.7-2.1 m/s: Suggestive of compensated advanced chronic liver disease but need further test for confirmation. *Liver Stiffness over 2.1 m/s: Rules in compensated advanced chronic liver disease. *Liver Stiffness over 2.4 m/s: Suggestive of clinically significant portal hypertension. QUALITY OF DATA SET: *IQR/Median value equal or less than 0.15 implies a quality data set. *IQR/Median value over 0.15 implies a poor quality data set. SIGNIFICANT CHANGE FROM PRIOR EXAM: Significant change if liver stiffness measurement is 10% or greater from prior exam. OTHER CONSIDERATIONS: The stage of liver fibrosis may be overestimated in the setting of acute hepatitis, liver inflammation, elevated liver function tests, hepatic vascular congestion, obstructive cholestasis, non-fasting state, and infiltrative diseases such as amyloidosis and lymphoma. In some patients with NAFLD, the liver stiffness thresholds for compensated advanced chronic liver disease may be lower. In causes other than viral hepatitis and NAFLD, liver stiffness thresholds are not well established.
--- NOTE | 2023-05-31 09:15 | ECG_ITS ---
Test Reason : OBESITY Blood Pressure : / mmHG Vent. Rate : 075 BPM Atrial Rate : 075 BPM P-R Int : 164 ms QRS Dur : 094 ms QT Int : 404 ms P-R-T Axes : 067 038 028 degrees QTc Int : 451 ms Normal sinus rhythm Normal ECG No previous ECGs available Referred By: Zandra Jackson Electronically Signed By:LULY ALVA
[2023-05-31 10:50] LABS: Thyroid Stimulating Hormone 0.87 uIU/mL (0.32-4.0)
== END 2023-05-31 08:18 | disposition home or self-care (01) ==
LOC: HO.US 08:17
PROVIDERS: PCP Internal Medicine; Visit Provider Physician Assistant
DX: E03.9 Hypothyroidism, unspecified (principal); I26.99 Other pulmonary embolism without acute cor pulmonale; M79.7 Fibromyalgia; E66.9 Obesity, unspecified; Z98.84 Bariatric surgery status
CPT/HCPCS: 36415; 71046; 76705; 76981; 84443; 93005

== ENCOUNTER 2023-07-05 06:37 | Day surgery (SDC) | payer OTHER, SELFPAY ==
[2023-07-03 08:27] VITALS: BMI 38.4
--- NOTE | 2023-07-04 19:54 | MHC.SHP ---
Pre-Procedural Eval Section A Date of Service: 07/04/23 The patient is an INPATIENT: No The History & Physical has been completed within 30 days and I have reviewed it.: Yes Section B Chief Complaint: Bariatric surgery status Relevant Family History (Specify if Yes): No Relevant Social History: None Present Medications: None Medical History: No relevant PMH History of Previous Operations: Relevant previous surgery/procedure and date(s) (Laparoscopic gastric bypass surgery) Allergies: Allergies Allergy/AdvReac Type Severity Reaction Status Date / Time No Known Allergies Allergy Verified 05/30/23 15:22 Review of Systems Sugical H&P ROS: Negative: Constitution, Cardiovascular, Respiratory, Neurological, Psychiatric, Hem-Onc, Allergic/Immunologic, Gastrointestinal, Genitourinary, Musculoskeletal, Integumentary, Endocrine and Eyes/Ears/Nose/Throat Exam Surgical H&P Exam: Normal: HEENT, Normal: Heart, Normal: Lungs, Normal: Extremities, Normal: Abdomen, Normal: Skin and Normal: Neurological Plan Diagnosis/Plan: Unchanged (EGD to assess for esophagitis and hiatal hernia. Risks for perforation and bleeding were discussed with patient. She is in agreement with the plan) I have reviewed the history and physical and performed a pertinent physical examination on my patient. No changes have occurred unless specified. Time Spent With Patient Time: Total time managing care of this patient today ____ minutes.
[2023-07-05 06:54] LABS: UPreg QC Valid YES; Urine Pregnancy NEGATIVE (NEGATIVE)
[2023-07-05 07:00] VITALS: BMI 37.8
[2023-07-05 07:04] VITALS: BP 123/80; PULSE 82; RESP 18; TEMP 36.1; O2SAT 98
--- NOTE | 2023-07-05 07:37 | HO.ANESPROP2 ---
HPI - Anesthesia Eval Consult details Narrative: 42 F for egd PMFSH Active Problems Active Problems: All Active Problems (Updated 12/29/21 @ 15:15 by Zandra Jackson PA-C) Fibromyalgia (Acute) Hypothyroidism (Acute) Pulmonary embolism (Acute) Gastric bypass status for obesity (Acute) Obesity (Acute) Family planning (Acute) Vitamin D deficiency (Acute) Polyarthralgia (Acute) Past Medical History Medical History Pulmonary embolism Hypothyroidism Fibromyalgia Family History Family History Mother CVD (cardiovascular disease) Bone cancer HTN (hypertension) Diabetes Thyroid disease Father Bone cancer HTN (hypertension) Diabetes Family history of problems with anesthesia: No Surgical History Surgical History H/O abdominoplasty H/O breast reconstruction History of appendectomy Gastric bypass status for obesity History of Problems with Anesthesia: No Social History Social History Alcohol intake: current Alcohol intake frequency: holidays/special occasions only Patient Tobacco Use Status: Never used Tobacco Use of substances other than those prescribed or required for medical reasons: No Are you DNR?: No Advance Directives: No Advance Directives Information Provided: Yes Meds Allergies Allergy/AdvReac Type Severity Reaction Status Date / Time No Known Allergies Allergy Verified 05/30/23 15:22 Active Medications: Current Medications Lactated Ringer's (Lr) 1,000 mls @ 80 mls/hr IVCONT .[id number] MORENITA Last Admin: 07/05/23 07:14 Dose: 80 mls/hr Home Medications Medication Instructions Recorded Confirmed Last Taken Type ibuprofen 600 mg tablet 600 mg PO Q8H PRN Pain 08/24/20 07/05/23 Unknown History levothyroxine 125 mcg tablet 125 mcg PO DAILY 08/24/20 07/05/23 07/05/23 History (Synthroid) duloxetine 30 mg capsule,delayed 50 mg PO BEDTIME 12/29/21 07/05/23 Unknown History release cyclobenzaprine 10 mg tablet 10 mg PO BEDTIME 05/07/23 07/05/23 Unknown History duloxetine 60 mg capsule,delayed 60 mg PO BEDTIME 05/07/23 07/05/23 Unknown History release Exam Exam Date and Time: July 05, [id number] Height,Weight and Vital Signs: Height 5 ft 4 in Weight 220 lb Last Vital Signs Temp 96.9 F 07/05/23 07:04 Pulse 82 07/05/23 07:04 Resp 18 07/05/23 07:04 BP 123/80 07/05/23 07:04 Pulse Ox 98 07/05/23 07:04 O2 Del Method Room Air 07/05/23 07:04 Pertinent Lab Results Pertinent Lab Results: Laboratory Tests 07/05/23 06:35 Urine Test NEGATIVE Airway Mallampati Class: II TM Dist: >3cm Neck ROM: Full Loose/Missing/Broken Teeth: Yes Assessment and Plan Assessment Anesthesia Assessment: Anesthesia Plan Discussed and Chart Reviewed Final Anesthetic Review Family History of Problems with Anesthesia: No History of Problems with Anesthesia: No NPO: Yes ASA Class: III Final Preanesthetic Review: No Changes in Pt Med Stat, Meds/Allgs Chart Reviewed, Consent Obtained/Reviewed and Anes Risks/Benef Reviewed Patient Risk: Intermediate Procedure Risk: Low Anesthetic Plan Anesthetic Plan: MAC: Disposition: Standard PACU
--- NOTE | 2023-07-05 07:47 | P.BOP_ITS ---
Brief Operative Note Date of Service: 07/05/23 Pre-op diagnosis: GERD and hiatal hernia, s/p gastric bypass Post-op diagnosis: same Procedure: PROCEDURE DATE: ?07/05/2023 PREOPERATIVE DIAGNOSIS: GERD, s/p gastric bypass POSTOPERATIVE DIAGNOSIS: ?Same as above. 1) Redundant gastric pouch, 2) Candy cane gastro-jejunostomy, 3) small hiatal hernia PROCEDURE: [id number] with biopsies Surgeon: ?Alan Cabrera M.D.. Ph.D. Mer[employer] Utility Worker: ?None ? Anesthesia: IV sedation Estimated blood loss: ?Minimal FINDINGS AND PROCEDURE: ? OPERATIVE INDICATIONS: ?The patient is a 42 year old female known to me who underwent a laparoscopic gastric bypass elsewhere. The patient had inadequate weight loss so far and has GERD.? Recent UGI confirmed this and additionally showed a diaphragmatic hernia. Based on this information I recommended an upper endoscopy to evaluate the patient's symptoms.? Risks and complications of the surgery were discussed with the patient in advance particularly the possibility of perforation or bleeding that may require surgical intervention. The patient understood the risks and was in agreement with the plan. ? PROCEDURE: After informed consent was obtained by the patient, the patient was ?transferred to the Operating Room and was placed in the supine position.? After successful induction of IV sedation, a mouth block was placed and the patient was placed in the left lateral decubitus position. An upper endoscopy was performed next, the oropharynx and esophagus appeared within the normal limits. There was a 2-3cm hiatal hernia.? The z-line was smooth. One biopsy was obtained from the distal esophagus 2-3 cm proximal to the GE junction and one biopsy from the GE junction. The gastric pouch was entered. There was moderate lateral redundancy. The gastric pouch is not long and is about 4cm in length. There was no gastritis and the gastrojejunostomy was patent. A biopsy was obtained from the gastric pouch. No significant bleeding was noted from any of the biopsy sites. There was no anastomotic ulcer.? At that point the scope was advanced into the proximal small intestine (proximal Maria [place] Carmen limb) which appeared to be normal as well. The Maria [place] Carmen limb and the pouch were decompressed and the scope was withdrawn from the patient's mouth. The patient was awaken and was transferred in stable condition to the Recovery Room for further care. I was present and performed all steps of the procedure. There were no residents to assist with this case. Alan Cabrera M.D., Ph.D. Surgeon: Naveen Cabrera MD Anesthesia: MAC Was an Merchant [employer] Utility Worker used for this Procedure?: No Estimated blood loss (mL): 0 IV fluids (mL): 400 Urine output (mL): 0 (No Jones to record output) Pathology: other (1) gastric pouch x1, 2) GE junction x1, 3) distal esophagus x1) Condition: stable Disposition: PACU
[2023-07-05 08:15] VITALS: BP 126/55; PULSE 84; RESP 16; TEMP 36.1; O2SAT 97
[2023-07-05 08:29] VITALS: BP 126/55; PULSE 84; RESP 16; TEMP 36.1; O2SAT 97
== END 2023-07-05 08:58 | disposition home or self-care (01) ==
PROVIDERS: Anesthesiology; PCP Internal Medicine; Visit Provider Surgery
PROC: 0DJ08ZZ Inspection of Upper Intestinal Tract, Via Natural or Artificial Opening Endoscopic (ICD-10-PCS; CPT 43235; principal; 2023-07-05 07:30)
DX: K21.9 Gastro-esophageal reflux disease without esophagitis (principal); K95.89 Other complications of other bariatric procedure; Z98.84 Bariatric surgery status; K44.9 Diaphragmatic hernia without obstruction or gangrene; E66.9 Obesity, unspecified; Z68.38 Body mass index [BMI] 38.0-38.9, adult; I26.99 Other pulmonary embolism without acute cor pulmonale; M79.7 Fibromyalgia; E03.9 Hypothyroidism, unspecified; Z98.890 Other specified postprocedural states; Z79.899 Other long term (current) drug therapy; Z79.1 Long term (current) use of non-steroidal anti-inflammatories (NSAID)
CPT/HCPCS: 43239; 81025; 88305; 88342

== ENCOUNTER → 2023-07-05 06:37 | Outpatient (BNV) | payer OTHER, SELFPAY | PROVIDERS: PCP Internal Medicine; Visit Provider Surgery | DX: K21.00 Gastro-esophageal reflux disease with esophagitis, without bleeding (principal); Z90.3 Acquired absence of stomach [part of]; Z98.84 Bariatric surgery status | CPT/HCPCS: 43239 ==

== ENCOUNTER 2023-07-31 09:26 | Outpatient (AMB) | payer OTHER, SELFPAY ==
--- NOTE | 2023-07-31 09:01 | A.OFFVIS_ITS ---
Intake Intake Visit Reasons: VIDEO F/U SWL Allergies No Known Allergies Allergy (Verified 05/30/23 15:22) HPI HPI Comments History of Present Illness Details [facility] follow up for revision of previous GBP. 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 Last appt with me in May, patient [place]. [place] -- no weight today Tried to get her OR reports from [place], was told to email them, which she did 2 weeks and has not gotten a repsonse yet. She will email them again today. Meal plan:wakes a 3:30, bed at 7pm. coffee - diet sugar and Fairlife, does not like bars 4:30 oatmeal 9am - 1 slice of bread with ham and [place] se with crystal light 12:30 - Premier shake 4:30 pm - not measuring --salad and prot ein Exercise - none, has gym at her apartment. Wants to walk outside Pre op work up completed as follows: [facility] classes - 05/08 appts - 05/31 Kaya, follow up 08/09 appts - cleared H pylori - negative Labs - done CXR - Slight elevation the right hemidiaphragm, Bilateral low lung volumes, Right basilar atelectasis. ECG - normal ULS - 05/31 UGI - IMPRESSION: Esophagus normal in appearance without evidence of stricture, mass, or mucosal abnormality. 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 ? Small hiatus hernia, type I. Minimal gastroesophageal reflux noted during the course of the exam. ? Normal appearance to the postoperative gastric pouch and gastrojejunostomy. As expected appearance to the proximal and distal anastomosis with mild reflux into the [place] duodenum, but no reflux into the excluded stomach. ? The proximal jejunum has a normal caliber and mucosal fold pattern.? ? UGI reviewed by Dr Quinones - recommends EGD be schedule. EGD done 07/05 - small HH, redundant gastric pouch and candy can g-j anastamosis [facility] Medical History Pulmonary embolism Hypothyroidism Fibromyalgia Surgical History H/O abdominoplasty H/O breast reconstruction History of appendectomy Gastric bypass status for obesity Family History Mother CVD (cardiovascular disease) Bone cancer HTN (hypertension) Diabetes Thyroid disease Father Bone cancer HTN (hypertension) Diabetes Social History Alcohol intake: current Alcohol intake frequency: holidays/special occasions only Patient Tobacco Use Status: Never used Tobacco Female Reproductive History Menstrual Age of Menarche: 12 Assessment & Plan Assessment & Plan (1) Obesity: Code(s): E66.9 - Obesity, unspecified Plan: Pt has finished her pre op work up for revision of GBP, but has not been following our meal or exercise recommendations and does not have her weight today. She will texxt me her weight later today and also her next work out - walk x 2 miles in 30 minutes for a t least 300 calories burned. Meal plan changes: 4 :30 - shake 9am - yogurt (does not like bars) 12:30 shake 4:40 - 8 forks each of protien and vegetable Must exercise at least 4 d/week for 300 calroies. Is still attempting to get her OR records for [place]. Next appt with me in 3 weeks. Encouraged weekly texts. Patient is still obese and is not considered stable at this time. I spent 30 minutes in total speaking with the patient via video conference counseling , reviewing records and charting in patients chart. . (2) Gastric bypass status for obesity: Code(s): Z98.84 - Bariatric surgery status (3) Fibromyalgia: Code(s): M79.7 - Fibromyalgia Telehealth Telehealth Location of provider rendering services: practice address Location of patient: address on file Patient Identification confirmed using: Name, : Yes Telehealth method: video Patient verbally consented to treatment: Yes Patient verbally consented to billing insurance company: Yes Coding Level of Care Code Tele Est Pt Level 4 (24768) Diagnoses Obesity E66.9 Gastric bypass status for obesity Z98.84 Fibromyalgia M79.7
== END 2023-07-31 09:30 | disposition home or self-care (01) ==
LOC: HO.HBS 09:26
PROVIDERS: PCP Internal Medicine; Visit Provider Physician Assistant
DX: E66.9 Obesity, unspecified (principal); Z98.84 Bariatric surgery status; M79.7 Fibromyalgia
CPT/HCPCS: 99214

== ENCOUNTER → 2023-07-31 09:26 | Outpatient (BNVA) | payer OTHER, SELFPAY | PROVIDERS: PCP Internal Medicine; Visit Provider Physician Assistant ==

== ENCOUNTER 2023-08-09 09:11 | Outpatient (AMB) | payer OTHER, SELFPAY ==
--- NOTE | 2023-08-09 09:13 | A.OFFWM_ITS ---
Intake Intake Visit Reasons: VIDEO BH Intake Allergies No Known Allergies Allergy (Verified 05/30/23 15:22) [facility] Medical History Pulmonary embolism Hypothyroidism Fibromyalgia Surgical History H/O abdominoplasty H/O breast reconstruction History of appendectomy Gastric bypass status for obesity Family History Mother CVD (cardiovascular disease) Bone cancer HTN (hypertension) Diabetes Thyroid disease Father Bone cancer HTN (hypertension) Diabetes Social History Alcohol intake: current Alcohol intake frequency: holidays/special occasions only Patient Tobacco Use Status: Never used Tobacco Female Reproductive History Menstrual Age of Menarche: 12 Behavioral Health Assessment Weight Management Therapy Therapy Notes Details Pt is a 42 y/o, , Japanese-speaking female who presents for intake as part of surgical weight-loss program. PT denied any history of mental health treatment and or past hospi talization/crisis for behavioral health. Denies any safety concerns around SI and/or self-other harm, also there is no history of substance use reported. There is also no evidence for stress/emotional-eating, and scores from BES suggest minimal risk for binge eating behavior. PHQ- scores also showed no active symptoms/concerns with depression. Mental status exam is withing normal limits, suggesting person's functioning is not impaired. At this time patient is cleared from the behavioral health standpoint. Presenting Concerns Referral Source P Provider. Pt sees Zandra. Reason for referral Completion of behavioral health assessment as part of process for weight-loss surgery. Precipitating Event Obesity and medical issues. Living Situation Current Living Situation Rent At risk of losing current housing? No Satisfied with current living situation? Yes Comments PT lives with and their dog. Food/Weight/Diet Expectations of change PT is expected to loss 10% of her weight before surgery. She wants to be under 170Lbs. History/Relationship with food PT used to skip meals, she likes carbs such as pasta and bread. Denies any stress-eating. Pt has been eating normal portions the past 6 years ago. . Example of meals before starting program Breakfast: @5am sandwich, juice, chips. Lunch: @10am Rice/beans/pork w/ water or crystal light. Dinner: @4:30pm Pasta or plantains w/ meat and crystal light r water. Night snack: cheese and cracker or popcorn. History/Relationship with weight PT had bariatric surgery on 2004. Started gaining weight again 7 years ago. In the past 10 years her lowest weight has been 160Lbs, and the highest 223Lbs (Starting weight at this program). PT was diagnosed with fibromyalgia 4 years ago, and at that time she started taking meds that lead her to gain weight. As part of her illness, she is less active due to the pain. History/Relationship with dieting Bariatric surgery 2004. Low carb diet. Binge Eating Do you frequently eat large amounts of food in short periods of time, not feeling physically hungry? No Do you feel out of control when you eat a large amount of food in a short period of time? No Do you eat large amounts of food rapidly and typically alone? No Night Eating Do you wake up at least once during the night to eat? No If you wake up in the night, do you find that it is necessary to eat something in order to fall back asleep? No Do you have little or no appetite in the morning and feel very hungry in the evening, often overeating between dinner and when you go to bed? No Social History Family history and relationship PT is . They don't have kids. They live in this area alone. All of their family is in [place]. Parents alive, has 1 brother. PT reports good family relationships. 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 Developmental history and status None reported. Currently WNL. Social support , parents. Community support PCP. Latter Day/Spirituality Raised as Buddhist. Cultural/Ethnic information Pt is from [place]. Living in [place] 5 years ago. Legal Involvement and History Current or historical involvement with the legal system? None reported. Education Highest grade completed Associate degree in Business administration and accounting. Preferred learning style Visual Currently enrolled in educational program? No Interested in further educational program? No Educational Interests/Skills Crafts. Employment Employment Status [employer] Person Wants help to find employment? No Meaningful activities Watch Tv, read, travel. Financial Situation Describe current financial situation Comfortable Financial assistance? None Service Service? No Mental Health and Addiction Treatment Current/Past substance abuse? No Comments She had her cannabis license 2 years ago, but she didn't like it, tried 2 times an edible and oil. Current/Past addictive behavior concerns? No Psychiatric history Never in counseling before. Denies ever been hospitalized and/or in crisis for MH. No Safety concerns reported. Medical and Physical Health Summary Additional Medical History not covered in history None reported. Sexual History concerns None reported. Physical exam in the last year? Yes Pain Screening Current pain? Yes Pain in the last few months? Yes Comments Due to fybromialgya. Last flare up last month and lasted 8 days. Medications Is the patient compliant with medications? Yes Does the patient have Osorio Guardian in place? Not applicable Does the patient use complimentary health approaches? No Trauma/Abuse History History of trauma? No Questionnaires PHQ-9 Over the last 2 weeks, how often have you been bothered by any of the following problems? 1. Little interest or pleasure in doing things: not at all 2. Feeling down, depressed, or hopeless: not at all 3. Trouble falling or staying asleep, or sleeping too much: not at all 4. Feeling tired or having little energy: several days (Due to Fibromyalgia. ) 5. Poor appetite or overeating: not at all 6. Feeling bad about yourself - or that you are a failure or have let yourself or your family down: not at all 7. Trouble concentrating on things, such as reading the newspaper or watching television: not at all 8. Moving or speaking so slowly that other people could have noticed. Or the opposite - being so fidgety or restless that you have been moving around a lot more than usual: not at all 9. Thoughts that you would be better off or of hurting yourself in some way: not at all Total score: 1 Depression Screening Interpretation: Negative Depression Screening Done: Yes 35866 - PHQ-9 Billing: Yes Source: Developed by Drs. Presley Sanabria, Jodee Fitch, Kenny Michel and colleagues, with an educational vargas from [employer]. Binge Eating Scale Group 1 A. I don't feel self-conscious about my wt. or body size when I'm with others. B. I feel concerned about how I look to others, but it normally does not make me fell disappointed with myself C. I do get self-conscious about my appearance and wt. which makes me feel disappointed in myself. D. I feel very self-conscious about my wt. and frequently I feel intense shame and disgust for myself. I try to avoid social contacts because of my self-consciousness. Response Group 1: C Group 2 A. I don't have any difficulty eating slowly in the proper manner. B. Although I seem to gobble down foods, I don't end up feeling stuffed because of eating to much. C. At times, I tend to eat quickly and then, I feel uncomfortably full afterw ards. D. I have the habit of bolting down my food, without really chewing it. When this happens I usually feel uncomfortably stuffed because I've eaten to much. Response Group 2: B Group 3 A. I feel capable to control my eating urges when I want to. B. I feel like I have failed to control my eating more than the average person. C. I feel utterly helpless when it comes to feeling in control of my eating urges. D. Because I feel so helpless about controlling my eating I have become very desperate about trying to get control. Response Group 3: A Group 4 A. I don't have the habit of eating when I'm bored. B. I sometimes eat when I'm bored, but often I'm able to get busy and get my mind off food. C. I have a regular habit of eating when I'm bored, but occasionally, I can use some other activity to get my mind off eating. D. I have a strong habit of eating when I'm bored. Nothing seems to help me breath the habit. Response Group 4: A Group 5 A. I'm usually physically hungry when I eat something. B. Occasionally, I eat something on impulse even though I really am not hungry. C. I have the regular habit of eating foods, that I might not really enjoy, to satisfy a hungry feeling even though physically, I don't need the food. D. Although I'm not physically hungry, I get a hungry feeling in my mouth that only seems to be satisfied when I eat a food, like sandwich, that fills my mouth. Sometimes, when I eat the food to satisfy my mouth hunger, I then spit the food out so I won't gain weight. Response Group 5: A Group 6 A. I don't feel any guilt or self-hate after I overeat. B. After I overeat, occasionally I feel guilt or self-hate. C. Almost all the time I experience strong guilt or self-hate after I overeat. Response Group 6: B Group 7 A. I don't lose total control of my eating when dieting even after periods when I overeat. B. Sometimes when I eat a forbidden food on a diet, I feel like I blew it and eat even more. C. Frequently, I have the habit of saying to myself, I've blown it now, why not go all the way, when I overeat on a diet. When that happens I eat more. D. I have a regular habit of starting a strict diets for myself but I break the diets by going on an eating binge. My life seems to be either a feast or famine. Response Group 7: A Group 8 A. I rarely eat so much food that I feel uncomfortably stuffed afterwards. B. Usually about once a month, I each such a quantity of food, I end up feeling very stuffed. C. I have regular periods during the month when I eat large amounts of food, either at mealtime or at snacks. D. I eat so much food that I regularly feel quite uncomfortable after eating and sometimes a bit nauseous. Response Group 8: A Group 9 A. My level of calorie intake does not go up very high or go down very low on a regular basis. B. Sometimes after I overeat, I will try to reduce my caloric intake to almost nothing to compensate for the excess calories I've eaten. C. I have a regular habit of overeating during the night. It seems that my routine is not to be hungry in the morning but overeat in the evening. D. In my adult years, I have had week-long periods where I practically starve myself. This follows periods when I overeat. It seems I live a life of either feast or famine. Response Group 9: C Group 10 A. I usually am able to stop eating when I want to. I know when enough is enough. B. Every so often, I experience a compulsion to eat which I can't seem to co ntrol. C. Frequently, I experience strong urges to eat which I seem unable to control, but at other times I can control my eating urges. D. I feel incapable of controlling urges to eat. I have a fear of not being able to stop eating voluntarily. Response Group 10: A Group 11 A. I don't have any problem stopping eating when I feel full. B. I usually can stop eating when I feel full but occasionally overeat leaving me feeling uncomfortably stuffed. C. I have a problem stopping eating once I start and usually I feel uncomfortably stuffed after I eat a meal. D. Because I have a problem not being able to stop eating when I want, I sometimes have to induce vomiting to relieve my stuffed feeling. Response Group 11: B Group 12 A. I seem to eat just as much when I'm with others, Family social gatherings as when I'm by myself. B. Sometimes, when I'm with other persons, I don't eat as much as I want to eat because I'm self-conscious about my eating. C. Frequently, I eat only a small amount of food when others are present, because I'm very embarrassed about my eating. D. I feel so ashamed about overeating that I pick times to overeat when I know no one will see me. I feel like a closet eater. Response Group 12: A Group 13 A. I eat three meals a day with only an occasional between meal snack. B. I eat 3 meals a day, but I also normally snack between meals. C. When I am snacking heavily, I get in the habit of skipping regular meals. D. There are regular periods when I seem to be continually eating, with no planned meals. Response Group 13: B Group 14 A. I don't think much about trying to control unwanted eating urges. B. At least some of the time, I feel my thoughts are pre-occupied with trying to control my eating urges. C. I feel that frequently I spend much time thinking about how much I ate or about trying not to eat anymore. D. It seems to me that most of my waking hours are pre-occupied by thoughts about eating or not eating. I feel like I'm constantly struggling not to eat. Response Group 14: B Group 15 A. I don't think about food a great deal. B. I have strong craving for food but they last only for brief periods of time. C. I have days when I can't seem to think about anything else but food. D. Most of my days seem to be pre-occupied with thoughts about food. I feel like I live to eat. Response Group 15: A Group 16 A. I usually know whether or not I'm physically hungry. I take the right portion of food to satisfy me. B. Occasionally, I feel uncertain about knowing whether or not I'm physically hungry. A these times it's hard to know how much food I should take to satisfy me. C. Even though I might know how many calories I should eat, I don't have any idea what is a normal amount of food for me. Response Group 16: A Binge Eating Score: 9 Score less than 17 Minimal Risk Score between 18-26 Moderate Risk Score between 27-46 High Risk Assessment & Plan Assessment & Plan (1) Adjustment disorder: Code(s): F43.20 - Adjustment disorder, unspecified Plan After completing the assessment and comparing scores from Binge eating scale and PHQ9, at this time, this com writer has no concerns about patient's mental status. Client is cleared and there is no need for follow up. Clinician has advised client about available resources if ever in need to access additional support and has encourage client to participate in post-op groups and facebook community for post-op patients. Telehealth Telehealth Location of provider rendering services: other (Home office. [place], [place]) Location of patient: address on file Patient Identification confirmed using: Name, : Yes Telehealth method: video Patient verbally consented to treatment: Yes Patient verbally consented to billing insurance company: Yes Patient informed of any privacy concerns related to visit: No Minutes spent on Phone/Video with Pt.: 60 Coding Level of Care Code New Pt Tele Psy Diag Carlos ([id number]) Patient Type New Diagnoses Adjustment disorder F43.20 Time Spent (min) 60
== END 2023-08-09 10:00 | disposition home or self-care (01) ==
LOC: HO.HBST 09:11
PROVIDERS: PCP Internal Medicine; Visit Provider Counselor Mental Health
DX: F43.20 Adjustment disorder, unspecified (principal)
CPT/HCPCS: 90791

== ENCOUNTER → 2023-08-09 09:11 | Outpatient (BNVA) | payer OTHER, SELFPAY | PROVIDERS: PCP Internal Medicine; Visit Provider Counselor Mental Health ==

== ENCOUNTER 2023-09-13 09:28 | Outpatient (AMB) | payer OTHER, SELFPAY ==
--- NOTE | 2023-09-13 09:33 | A.OFFVIS_ITS ---
Intake VS Expanded 09/13/23 09:45 BP 130/69 Blood Pressure Location Rt brachial Blood Pressure Position Sitting Pulse 93 Pulse Source Pulse Oximeter Temp 96.4 F L Temperature Source Tympanic Pulse Oximetry 100 Oxygen Delivery Method Room Air Height 5 ft 3 in Weight 211 lb 12.8 oz BMI 37.5 Body Fat % 44.4 Body Fat Mass 94.0 Fat Free Mass 117.8 Visceral Fat Rating 11.0 Body Water % 39.7 Body Water Mass 84.0 Muscle Mass/Score 111.8 Basal Metabolic Rate/Score 1,654 Intake Visit Reasons: (OV) F/U SWL Allergies No Known Allergies Allergy (Verified 09/13/23 09:36) HPI HPI Comments History of Present Illness Details SWL follow up for revision of GBP done in [place], no OR reports available, 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 TBWL 11.2 lbs or 5%. Meal plan: 2;30 am wakes, bed at 7:20 pm 3 pm - coffee 1% only 4:30 - beninese yogurt or shake 9:30 - coffee only 12 pm - Quest bar or shake 3 pm - salad with fish or beef. Tried us ing 8 forks each and it ws hard for her so she eats about 3-4 ounces of each - weighs her food. Exercise - bicycle 4-5 d/ week, her machine doesn't tell her caloreis burned, says she doesn't know how to use it Pre op work up completed as follows: [facility] classes - 05/08 appts - 05/31 Kaya, follow up 08/[address] appts - cleared H pylori - negative Labs - done CXR - Slight elevation the right hemidiaphragm, Bilateral low lung volumes, Right basilar atelectasis. ECG - normal ULS - R 13.6, L 7.9 UGI - IMPRESSION: Esophagus normal in appearance without evidence of stricture, mass, or mucosal abnormality. 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 ? Small hiatus hernia, type I. Minimal gastroesophageal reflux noted during the course of the exam. ? Normal appearance to the postoperative gastric pouch and gastrojejunostomy. As expected appearance to the proximal and distal anastomosis with mild reflux into the [place] duodenum, but no reflux into the excluded stomach. ? The proximal jejunum has a normal caliber and mucosal fold pattern.? ? UGI reviewed by Dr Quinones - recommends EGD be schedule. EGD done 07/05 - small HH, redundant gastric pouch and candy can g-j anastamosis [facility] Medical History Pulmonary embolism Hypothyroidism Fibromyalgia Surgical History H/O abdominoplasty H/O breast reconstruction History of appendectomy Gastric bypass status for obesity Family History Mother CVD (cardiovascular disease) Bone cancer HTN (hypertension) Diabetes Thyroid disease Father Bone cancer HTN (hypertension) Diabetes Social History Alcohol intake: current Alcohol intake frequency: holidays/special occasions only Patient Tobacco Use Status: Never used Tobacco Female Reproductive History Menstrual Age of Menarche: 12 Assessment & Plan Assessment & Plan (1) Obesity: Code(s): E66.9 - Obesity, unspecified Plan: Pre op work up completed, revision approved by Dr Quinones. Meal plan changes 4:30 - bar 9:30 shake with coffee - will change to Premeir powder now. 3pm- meal of 8/8 forks each Exercise - will text me calories burned on her bicycle via apple watch - plan is for at least 300 calories 5 d/week. Patient is morbidly obese and is not considered stable at this time. I spent 30 minutes in total with patient reviewing/updating records, examining the patient and counseling the patient on weight management as detailed above. Next appt with me in 3 weeks. (2) Gastric bypass status for obesity: Code(s): Z98.84 - Bariatric surgery status Plan see above Coding Level of Care Code Est Pt Level 4 (22789) Diagnoses Obesity E66.9 Gastric bypass status for obesity Z98.84
[2023-09-13 09:45] VITALS: BP 130/69; PULSE 93; TEMP 35.8; O2SAT 100; BMI 37.5
== END 2023-09-13 10:05 | disposition home or self-care (01) ==
PROVIDERS: PCP Internal Medicine; Visit Provider Physician Assistant
DX: E66.9 Obesity, unspecified (principal); Z68.37 Body mass index [BMI] 37.0-37.9, adult; Z98.84 Bariatric surgery status
CPT/HCPCS: 99214

== ENCOUNTER → 2023-09-13 09:28 | Outpatient (BNVA) | payer OTHER, SELFPAY | PROVIDERS: PCP Internal Medicine; Visit Provider Physician Assistant ==

== ENCOUNTER 2023-10-03 08:30 | Outpatient (AMB) | payer OTHER, SELFPAY ==
--- NOTE | 2023-10-03 08:27 | MHC.OFFVISWM ---
Intake VS Expanded 10/03/23 09:39 Height 5 ft 3 in Weight 207 lb 4 oz BMI 36.7 Intake Visit Reasons: VIDEO F/U SWL Allergies No Known Allergies Allergy (Verified 09/13/23 09:36) HPI HPI Comments History of Present Illness Details SWL follow up for revision of GBP do ne in [place], no OR re ports available, N P weight of 223 lb s. TBWL 15.6 lbs o r 7%. Feels tired all the time. Slee ping 7.5 hours per night. Constipati on - started fiber caps yesterday wi ll increase to bid . Meal plan: 4am - Coffee, UAM 6am - bar 8:30 am - a nother coffee - bl ack 12pm - Premier RTD - will switch to powder when ne eds to buy more 3: 30 pm - 4 - 8 0z o f vegetables and m eat Exercise - 4-5 d of bicycle i n house 300 calori es on her health t racker, bicycle 4- 5 d/ week, Pre op work up completed as follows: [facility] c lasses - 05/08 BH a ppts - 05/31 Kaya , follow up 08/[address] appt s - cleared H pyl albino - negative Lab s - done CXR - Sli ght elevation the right hemidiaphrag m, Bilateral low l timmy volumes, Right basilar atelectas is. ECG - normal U LS - R 13.6, L 7.9 UGI - IMPRESSION: Esophagus normal in appearance with out evidence of st ricture, mass, or mucosal abnormalit y. Incidental note made of feline es ophagus, which can be associated wit h chronic reflux b ut is otherwise be nign. ? Small hiat us hernia, type I. Minimal gastroeso phageal reflux not ed during the cour se of the exam. ? Normal appearance to the postoperati ve gastric pouch a nd gastrojejunosto my. As expected ap pearance to the pr oximal and distal anastomosis with m ild reflux into th e [place] duodenum, but no reflux int o the excluded sto mach. ? The proxim al jejunum has a n ormal caliber and mucosal fold patte rn.? ? UGI reviewe d by Dr Quinones - recomm ends EGD, done 07/05 - small HH, redu ndant gastric pouc h and candy cane g -j anastamosis. Ap proved for revisio n when ready. PFSH Medical History Pulmonary embolism Hypothyroidism Fibromyalgia Surgical History H/O abdominoplasty H/O breast reconstruction History of appendectomy Gastric bypass status for obesity Family History Mother CVD (cardiovascular disease) Bone cancer HTN (hypertension) Diabetes Thyroid disease Father Bone cancer HTN (hypertension) Diabetes Social History Alcohol intake: current Alcohol intake frequency: holidays/special occasions only Patient Tobacco Use Status: Never used Tobacco Female Reproductive History Menstrual Age of Menarche: 12 Assessment & Plan Assessment & Plan (1) Obesity: Code(s): E66.9 - Obesity, unspecified Plan: Al pre op work up completed, but patient still does not have the proper electronic scale - Nithin will tell her today which one eot purchase. Has lost 7% TBWL so far. Is not getting enough nutrition with present plan. 6am - coffee with bar 11 am - shake 2 pm bar 4pm - meal Continue exercise - now increase to 350 calories burned on bike Next appt with nena 3 weeks. Patient is still obese and is not considered stable at this time. I spent 30 minutes in total speaking with the patient via video conference counseling , reviewing records and charting in patients chart. . (2) Gastric bypass status for obesity: Code(s): Z98.84 - Bariatric surgery status Plan see above Telehealth Telehealth Location of provider rendering services: practice address Location of patient: address on file Patient Identification confirmed using: Name, : Yes Telehealth method: voice only Patient verbally consented to treatment: Yes Patient verbally consented to billing insurance company: Yes Patient informed of any privacy concerns related to visit: Yes Coding Level of Care Code Tele Est Pt Level 4 (54450) Diagnoses Obesity E66.9 Gastric bypass status for obesity Z98.84
[2023-10-03 09:39] VITALS: BMI 36.7
== END 2023-10-03 10:01 | disposition home or self-care (01) ==
LOC: HO.HBS 09:59
PROVIDERS: PCP Internal Medicine; Visit Provider Physician Assistant
DX: E66.9 Obesity, unspecified (principal); Z98.84 Bariatric surgery status
CPT/HCPCS: 99214

== ENCOUNTER → 2023-10-03 08:30 | Outpatient (BNVA) | payer OTHER, SELFPAY | PROVIDERS: PCP Internal Medicine; Visit Provider Physician Assistant ==

== ENCOUNTER 2023-11-14 07:35 | Outpatient (REF) | payer OTHER, SELFPAY ==
[2023-11-14 08:15] LABS: Hematocrit 44.2 % (37.0-47.0); Imm Gran Abs Auto 0.01 X10*3/uL (0.00-0.03); Imm Gran Pct Auto 0.2 % (0.0-0.4); Lymphocytes Percent Auto 30.7 % (20-40); Mean Corpuscular Hemoglobin 30.1 pg (27.0-33.0); Red Cell Distribution Width 14.1 % (11.0-16.0); SCAN SMEAR FLAG 1
[2023-11-14 08:17] LABS: Basophils Absolute Auto 0.1 X10*3/uL (0.0-0.2); Eosinophils Absolute Auto 0.2 X10*3/uL (0.0-0.4); Eosinophils Percent Auto 3.4 % (0-4); Hemoglobin 14.6 g/dl (12.0-16.0); Lymphocytes Absolute Auto 1.5 X10*3/uL (1.2-4.9); Mean Corpuscular Volume 91.1 fL (80.0-98.0); Mean Platelet Volume 13.2 fL (9.4-12.3); Monocytes Absolute Auto 0.4 X10*3/uL (0.1-1.2); Monocytes Percent Auto 8.4 % (2-11); Neutrophils Absolute Auto 2.8 x10*3/uL (2.0-8.3); Neutrophils Percent Auto 56.3 % (45-73); Platelet Count 228 X10*3/uL (160-400); Red Blood Count 4.85 X10*6/uL (4.20-5.50)
[2023-11-14 08:36] LABS: MANUAL DIFF FLAG NO; PLT ABN DIST 1
[2023-11-14 08:45] LABS: Alanine Aminotransferase 13 U/L (0-31); Albumin Level 4.3 g/dL (3.5-5.0); Alkaline Phosphatase 122 U/L (39-117); Anion Gap 10 (12-20); Aspartate Amino Transferase 15 U/L (5-31); Bilirubin Total 0.6 mg/dL (0.0-1.0); Blood Urea Nitrogen 12 mg/dL (9-16); Calcium 9.6 mg/dL (8.4-10.2); Carbon Dioxide 24 mmol/L (22-29); Chloride 111 mmol/L (96-108); Estimated Glomerular Filt Rate > 60; Glucose Random 93 mg/dL (60-115); Potassium 4.2 mmol/L (3.3-5.1); Sodium 141 mmol/L (135-145); Total Protein 7.6 g/dL (6.5-8.0)
[2023-11-14 08:53] LABS: Thyroid Stimulating Hormone 0.79 uIU/mL (0.32-4.0)
== END 2023-11-14 07:36 | disposition home or self-care (01) ==
LOC: HO.LAB 07:35
PROVIDERS: PCP Internal Medicine; Visit Provider Internal Medicine
DX: E03.8 Other specified hypothyroidism (principal); M79.671 Pain in right foot; M79.7 Fibromyalgia; Z98.84 Bariatric surgery status
CPT/HCPCS: 36415; 80053; 84443; 85025

== ENCOUNTER 2023-11-15 14:20 | Outpatient (AMB) | payer OTHER, SELFPAY ==
--- NOTE | 2023-11-15 13:07 | MHC.OFFVISWM ---
Intake VS Expanded 11/15/23 14:06 Height 5 ft 3 in Weight 200 lb 8 oz BMI 35.5 Intake Visit Reasons: VIDEO F/U SWL Allergies No Known Allergies Allergy (Verified 09/13/23 09:36) HPI HPI Comments History of Present Illness Details SWL follow up for revision of previous GBP. 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 All pre op work up completed, including EGD. Meal plan: wakes at 7am 8am - coffee 9am - Quest bar 12 pm - shake Premier powder water 2 pm bar 4 pm - 4 forks each of protein and vegetables Continue exercise - bicylce at home 4 d/week - 45 minutes , unsure caloreis burned. [facility] Medical History Pulmonary embolism Hypothyroidism Fibromyalgia Surgical History H/O abdominoplasty H/O breast reconstruction History of appendectomy Gastric bypass status for obesity Family History Mother CVD (cardiovascular disease) Bone cancer HTN (hypertension) Diabetes Thyroid disease Father Bone cancer HTN (hypertension) Diabetes Social History Alcohol intake: current Alcohol intake frequency: holidays/special occasions only Patient Tobacco Use Status: Never used Tobacco Female Reproductive History Menstrual Age of Menarche: 12 Assessment & Plan Assessment & Plan (1) Obesity: Code(s): E66.9 - Obesity, unspecified Plan: Pt has lost 22.2 lbs or 9.9% TBWL in preparation for revision of previous GBP done in [place], no [place] records available. All preoperative work up completed and approved by Dr Quinones. No changes to meal plan. Exercise - will text me tomorrow with calories burned on bicycle - should be at leat 350 caloreis 4-5 d/ week. Emili will be notified to schedule next appt with Dr Quinones. Patient is still obese and is not considered stable at this time. I spent 21 minutes in total speaking with the patient via video conference counseling , reviewing records and charting in patients chart. . (2) Gastric bypass status for obesity: Code(s): Z98.84 - Bariatric surgery status Plan see above Telehealth Telehealth Location of provider rendering services: practice address Location of patient: address on file Patient Identification confirmed using: Name, : Yes Telehealth method: voice only Patient verbally consented to treatment: Yes Patient verbally consented to billing insurance company: Yes Patient informed of any privacy concerns related to visit: Yes Coding Level of Care Code Tele [facility] Pt Level 3 (52946) Diagnoses Obesity E66.9 Gastric bypass status for obesity Z98.84
[2023-11-15 14:06] VITALS: BMI 35.5
== END 2023-11-15 14:20 | disposition home or self-care (01) ==
LOC: HO.HBS 14:20
PROVIDERS: PCP Internal Medicine; Visit Provider Physician Assistant
DX: E66.9 Obesity, unspecified (principal); Z98.84 Bariatric surgery status; Z68.35 Body mass index [BMI] 35.0-35.9, adult
CPT/HCPCS: 99213

== ENCOUNTER → 2023-11-15 14:20 | Outpatient (BNVA) | payer OTHER, SELFPAY | PROVIDERS: PCP Internal Medicine; Visit Provider Physician Assistant ==

== ENCOUNTER 2023-12-12 09:02 | Outpatient (AMB) | payer OTHER, SELFPAY ==
--- NOTE | 2023-12-12 09:25 | MHC.OFFVISWM ---
Intake VS Expanded 12/12/23 09:52 Height 5 ft 3 in Weight 197 lb 6 oz BMI 35.0 Body Fat % 46.8 Body Fat Mass 92.4 Fat Free Mass 105.1 Visceral Fat Rating 12.1 Body Water % 40.4 Body Water Mass 79.8 Basal Metabolic Rate/Score 1,525 Intake Visit Reasons: TV Consult/Transfer Zandra *CORN SHUCKER* Allergies No Known Allergies Allergy (Verified 12/12/23 09:25) Medication List - Last Reconciled 12/12/23 by Naveen Cabrera MD cholecalciferol (vitamin D3) 50 mcg PO DAILY cyclobenzaprine 10 mg PO BEDTIME duloxetine 50 mg PO BEDTIME duloxetine 60 mg PO BEDTIME ibuprofen 600 mg PO Q8H PRN levothyroxine (Synthroid) 125 mcg PO DAILY topiramate 50 mg PO DAILY vitamin A palmitate 6,000 mcg (2 x 3,000 mcg (10,000 unit)) PO DAILY 2 weeks HPI TV Consult/Transfer Zandra *CORN SHUCKER* HPI Details Start time: 9.03am, End time: 9.57am ?I spent 44 minutes speaking with the patient on the phone plus an additional 10 minutes reviewing and updating records for a total of 54 minutes HPI Comments History of Present Illness Details Overall weight loss: 25lbs, or 11.26% TBWL Meal plan: wakes at 7am 8am - coffee 9am - Quest bar 12 pm - shake Premier powder water (2 scoops in water) 2 pm bar 4 pm - 4 forks each of protein and vegetables exercise: stationary bike: 4 days per week for 315 calories PFSH Medical History (Updated 12/12/23 @ 09:55 by Naveen Cabrera MD) Pulmonary embolism Hypothyroidism Fibromyalgia Surgical History H/O abdominoplasty H/O breast reconstruction History of appendectomy Gastric bypass status for obesity Family History Mother CVD (cardiovascular disease) Bone cancer HTN (hypertension) Diabetes Thyroid disease Father Bone cancer HTN (hypertension) Diabetes Social History Alcohol intake: current Alcohol intake frequency: holidays/special occasions only Patient Tobacco Use Status: Never used Tobacco Female Reproductive History Menstrual Age of Menarche: 12 Assessment & Plan Assessment & Plan (1) Obesity: Code(s): E66.9 - Obesity, unspecified Qualifiers: Obesity type: due to excess calories Obesity classification: adult class 1 (BMI 30 - 34.9) Serious obesity comorbidity presence: with serious comorbidity Body mass index: BMI 33.0-33.9 Qualified Code(s): E66.09 - Other obesity due to excess calories; Z68.33 - Body mass index [BMI] 33.0-33.9, adult Plan: 1. Continue present nutritional plan of 2 Quest protein bars, one Premier shake with 2 scoop in 8oz water and a meal (4 forks of meat and 4 forks of salad or vegetables) 2. Increase bike to 300 calories per day, daily 3. We discussed the option of revision surgery, MWL and use of GLP-1 and opted to proceed with the GLP-1 plus MWL 4. Continue to send me weight measurements weekly on Wednesdays Medications: New semaglutide (weight loss) administer weeks 9 through 12 of therapy 1 mg (0.5 mL) subcut QWEEK 2 mL 0RF E66.9 - Obesity, unspecified Telehealth Telehealth Location of provider rendering services: practice address Location of patient: address on file Patient Identification confirmed using: Name, : Yes Telehealth method: voice only Patient verbally consented to treatment: Yes Patient verbally consented to billing insurance company: Yes Patient informed of any privacy concerns related to visit: Yes Minutes spent on Phone/Video with Pt.: 54 Coding Level of Care Code Tele [facility] Pt Level 5 (64177) Diagnoses Class 1 obesity due to excess calories with serious comorbidity and body mass index (BMI) of 33.0 to 33.9 in adult E66.09; Z68.33 Obesity type: due to excess calories Obesity classification: adult class 1 (BMI 30 - 34.9) Serious obesity comorbidity presence: with serious comorbidity Body mass index: BMI 33.0-33.9 Time Spent (min) 54
[2023-12-12 09:52] VITALS: BMI 35.0
== END 2023-12-12 09:58 | disposition home or self-care (01) ==
LOC: HO.HBS 09:03
PROVIDERS: PCP Internal Medicine; Visit Provider Surgery
DX: E66.09 Other obesity due to excess calories (principal); Z68.35 Body mass index [BMI] 35.0-35.9, adult; Z98.84 Bariatric surgery status
CPT/HCPCS: 99215

== ENCOUNTER → 2023-12-12 09:02 | Outpatient (BNVA) | payer OTHER, SELFPAY | PROVIDERS: PCP Internal Medicine; Visit Provider Surgery ==

== ENCOUNTER 2024-02-27 10:26 | Outpatient (REF) | payer OTHER, SELFPAY ==
--- NOTE | ~2024-02-27 | MM_ITS ---
EXAMINATION: MM SCREENING DIGITAL BREAST TOMOSYNTHESIS, BILATERAL WITH BREAST IMPLANTS CLINICAL INFORMATION: Screening. Asymptomatic. COMPARISON: Mammography: This study is compared with the prior examinations dating back to 2022. TECHNIQUE: Digital mammography is performed in craniocaudal and mediolateral oblique views along with computer-aided detection (CAD). Digital breast tomosynthesis is performed in implant-displaced craniocaudal and implant-displaced mediolateral oblique views along with computer-aided detection (CAD). Synthesized 2D images are generated from the tomosynthesis. FINDINGS: The breasts are almost entirely fatty (ACR BI-RADS breast composition Category a). There are bilateral, mammographically intact, retropectoral saline breast implants. There are no significant masses, abnormal calcifications, or other abnormalities. MM/MM tomosynthesis screen imp BI IMPRESSION: There are no significant changes from prior study. ASSESSMENT: BI-RADS BI-RADS 1 - Negative RECOMMENDATION: Routine annual mammography screening. 1 year F/U This patient's information was entered into a reminder system with a target due date for their next mammogram.
== END 2024-02-27 10:27 | disposition home or self-care (01) ==
LOC: HO.MAMMO 10:26
PROVIDERS: PCP Internal Medicine; Visit Provider Internal Medicine
DX: Z12.31 Encounter for screening mammogram for malignant neoplasm of breast (principal)
CPT/HCPCS: 77063; 77067

== ENCOUNTER → 2024-02-27 11:00 | Outpatient (BNV) | payer OTHER, SELFPAY | PROVIDERS: PCP Internal Medicine; Visit Provider Radiology Diagnostic Radiology | DX: Z12.31 Encounter for screening mammogram for malignant neoplasm of breast (principal) | CPT/HCPCS: 77063; 77067 ==

== ENCOUNTER 2024-09-10 08:51 | Outpatient (REF) | payer OTHER, SELFPAY ==
[2024-09-10 10:56] LABS: Cholesterol 173 mg/dL (<200); HDL Cholesterol 59 mg/dL (>40); LDL Cholesterol Calculated 104 mg/dL (<100); Triglycerides 50 mg/dL (<150)
[2024-09-10 11:14] LABS: Thyroid Stimulating Hormone 2.91 uIU/mL (0.32-4.0)
== END 2024-09-10 08:52 | disposition home or self-care (01) ==
LOC: HO.LAB 08:51
PROVIDERS: PCP Internal Medicine; Visit Provider Internal Medicine
DX: Z00.00 Encounter for general adult medical examination without abnormal findings (principal); E03.8 Other specified hypothyroidism; F32.5 Major depressive disorder, single episode, in full remission; M79.7 Fibromyalgia; Z68.35 Body mass index [BMI] 35.0-35.9, adult
CPT/HCPCS: 36415; 80061; 84443

== ENCOUNTER 2025-01-22 13:46 | Outpatient (AMB) | payer OTHER, SELFPAY ==
--- NOTE | 2025-01-22 13:55 | MHC.OFFVIS ---
Vital Signs 01/22/25 14:00 Height 5 ft 4 in Weight 195 lb BMI 33.5 BP 124/70 Blood Pressure Location Lt brachial Position Sitting Pulse 90 Pulse Oximetry (%) 98 Oxygen Delivery Method Room Air Intake Visit Reasons: [place] screening / was [place] Intake Note: Patient new consult for 1st pre colonoscopy screening. Patient cc: constipation, denies any other GI issues for today. 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 Operator Name: [facility] Interpeter Accompanied by: Self / Same As Patient Allergies No Known Allergies Allergy (Verified 01/22/25 13:54) Medication List - Last Reconciled 01/22/25 by Meli Coello CNP bisacodyl 5 mg PO ONCE 1 day cholecalciferol (vitamin D3) 50 mcg PO DAILY cyclobenzaprine 10 mg PO BEDTIME duloxetine 50 mg PO BEDTIME duloxetine 60 mg PO BEDTIME ibuprofen 600 mg PO Q8H PRN levothyroxine (Synthroid) 125 mcg PO DAILY polyethylene glycol 3350 (Miralax) 238 grams PO ONCE semaglutide (Ozempic) 1 mg (0.75 mL) subcut QWEEK topiramate XR 50 mg PO DAILY vitamin A palmitate 6,000 mcg (2 x 3,000 mcg (10,000 unit)) PO DAILY 2 weeks HPI HPI [place] screening / was [place]: Details: Patient is a 44-year-old female with PMH of fibromyalgia, adjustment disorder, migraines, hypothyroidism and obesity. Referred by PCP for pre colonoscopy screening. Pt is here today for colonoscopy pre-screening. Reports she had an colonoscopy approx 10+ years ago in [place] following gastric bypass and constipation. She underwent gastric bypass approx 20 years ago. She continues with constipation, states she does not have a daily BM-describes as type 2-3. Shares she has tried senna in the past but stopped after developing abdominal pain. She experience some relief with MiraLax, effective after 3 consistent doses. Shares now she will take detox tablets after five days of no BM. She is open to trying pharmacological management again. Associated symptoms: bloating Alleviating attempts: As above Patient denies: fever/chills, n/v, appetite changes, unintentional wt loss, ab pain or melena/hematochezia. typical food consumes: coffee with breakfast sandwich and eggs salad with meat potatoes, root vegetable, rice, meat, beans snacks on yogurt with fresh fruit drinks abou 36oz of water/day and has crystal light or cranberry juice minimal physical activity in the winter months, walks in the summer She reports infrequent episodes of pyrosis, resolves spontaneously. Social hx: 2 glasses of wine per month denies recreational drug use non-smoker family hx as below denies personal hx of CA asthma well controlled without medication, denies any other significant cardiopulmonary history tolerated anesthesia in the past without difficulty Shares she developed bilateral PE s/p breast reduction [facility] Medical History (Updated 01/22/25 @ 14:43 by Meli Coello CNP) Screening for colon cancer Constipation BMI 39.0-39.9,adult Adjustment disorder Family planning Pulmonary embolism Hypothyroidism Fibromyalgia Surgical History History of cholecystectomy Gastric bypass status for obesity H/O abdominoplasty H/O breast reconstruction History of appendectomy Family History Mother CVD (cardiovascular disease) Bone cancer HTN (hypertension) Diabetes Thyroid disease Father Bone cancer HTN (hypertension) Diabetes Social History Alcohol intake: current Alcohol intake frequency: holidays/special occasions only Patient Tobacco Use Status: Never used Tobacco Female Reproductive History Menstrual Age of Menarche: 12 Review of Systems Const Reports as per HPI ENT Reports as per HPI Card Reports as per HPI Resp Reports as per HPI GI Reports as per HPI Reports as per HPI Physical Exam Vital Signs: Last Vital Signs Pulse 90 01/22/25 14:00 BP 124/70 01/22/25 14:00 Pulse Ox 98 01/22/25 14:00 Oxygen Delivery Method Room Air 01/22/25 14:00 BMI result Body Mass Index 33.5 Const General: healthy appearing, no acute distress and well developed Nutritional Appearance: overweight Orientation/consciousness: patient oriented x3 HEENT Head: Yes normal to inspection, Yes normocephalic and Yes atraumatic Face and sinus: Yes normal facial exam Eyes General: appearance normal, both eyes and all related structures Neck Neck: Yes normal visual inspection Resp Effort & Inspection: normal respiratory effort, able to speak in complete sentences, no tracheal deviation and symmetric chest movement Auscultation: clear to auscultation bilaterally Cardio Jugular venous distension: no JVD Rate: regular rate Rhythm: regular rhythm Heart sounds: S1 normal heart sound present, S2 normal heart sound present, no gallops and no murmurs GI Inspection: Yes normal to inspection and No distended Palpation (GI): Soft to palpation, not firm, nontender and No hepatosplenomegaly present Auscultation: normal bowel sounds Neuro General: patient oriented x3 Gait exam (Neuro): Normal gait present Psych Appearance: grossly normal Mental Status: mental status grossly normal Speech and movement: Normal speech and movement present Affect: normal affect Attitude: cooperative Thought process: Normal thought process present Thought content: Normal thought content present Insight: Good insight present (Psych) Judgement: Good judgement present (Psych) Assessment & Plan Assessment & Plan (1) Obesity: Code(s): E66.9 - Obesity, unspecified Category: Medical Qualifiers: Obesity type: due to excess calories Obesity classification: adult class 1 (BMI 30 - 34.9) Serious obesity comorbidity presence: with serious comorbidity Body mass index: BMI 33.0-33.9 Qualified Code(s): E66.09 - Other obesity due to excess calories; Z68.33 - Body mass index [BMI] 33.0-33.9, adult Plan: BMI 33.5. Status post gastric bypass surgery approximately 20 years ago. Education on lifestyle modifications to promote weight loss. (2) Constipation: Code(s): K59.00 - Constipation, unspecified Category: Medical Plan: Chronic. Status post gastric bypass surgery. We will trial MiraLax and daily fiber tablet. Reinforced lifestyle modifications to promote regularity: -higher fiber diet -adequate hydration with water -150 minutes of moderate intensity exercise per week (3) Screening for colon cancer: Code(s): Z12.11 - Encounter for screening for malignant neoplasm of colon Category: Medical Plan: Due for colonoscopy screening. History of colonoscopy approximately 10 years ago, do not have records. Reviewed prep and procedure expectations. She understands to hold any NSAIDs, including ibuprofen at least 7 days before procedure. Advised she could take Tylenol if needed. Prep Rx'd to preferred pharmacy. Plan Follow-up after colonoscopy Time: I spent a total of 45 minutes on the date of encounter which includes: Preparing to see the patient (reviewed previous documentation, test results and medical history) Performing a medically appropriate exam and/or evaluation Ordering medications, tests, and procedures Documenting clinical information in the health record Medications: New polyethylene glycol 3350 (Miralax) per colonoscopy prep instructions 238 grams PO ONCE 238 grams 0RF methylcellulose (laxative) (Citrucel) 500 mg PO DAILY 90 tabs 1RF bisacodyl per colonoscopy instructions 5 mg PO ONCE 1 day 3 tabs 0RF polyethylene glycol 3350 (Miralax) Take 17G (one cap full) daily with 8oz of water 17 grams PO DAILY 30 days 238 grams 2RF constipation Discontinued semaglutide (Ozempic) Discontinued Reason: Patient no longer taking 1 mg (0.75 mL) subcut QWEEK 3 mL 0RF E66.9 - Obesity, unspecified Coding Level of Care Code New Pt New Pt Level 4 (69759) Patient Type New Diagnoses Class 1 obesity due to excess calories with serious comorbidity and body mass index (BMI) of 33.0 to 33.9 in adult E66.09; Z68.33 Obesity type: due to excess calories Obesity classification: adult class 1 (BMI 30 - 34.9) Serious obesity comorbidity presence: with serious comorbidity Body mass index: BMI 33.0-33.9 Constipation K59.00 Screening for colon cancer Z12.11
[2025-01-22 14:00] VITALS: BP 124/70; PULSE 90; O2SAT 98; BMI 33.5
== END 2025-01-22 14:46 | disposition home or self-care (01) ==
LOC: HO.HGI 13:47
PROVIDERS: PCP Internal Medicine; Visit Provider Nurse Practitioner Family
DX: K59.00 Constipation, unspecified (principal); Z12.11 Encounter for screening for malignant neoplasm of colon
CPT/HCPCS: 99202

== ENCOUNTER 2025-03-26 09:28 | Day surgery (SDC) | payer OTHER, SELFPAY ==
--- NOTE | 2025-03-25 12:18 | HO.ANESPROP2 ---
Documented by User: Fidelia Castellon NP 03/25/25 12:19 HPI - Anesthesia Eval Consult details Narrative: 44yo F for Colonoscopy Hx PE - ? date - no OAC in external med list PMFSH Active Problems Active Problems: All Active Problems Screening for colon cancer (Acute) Constipation (Acute) Obesity (BMI 30.0-34.9) (Acute) Migraines (Acute) Insomnia (Acute) Depression (Acute) Fibromyalgia (Acute) Hypothyroidism (Acute) Pulmonary embolism (Acute) Obesity (Acute) Vitamin D deficiency (Acute) Polyarthralgia (Acute) Past Medical History Medical History Screening for colon cancer Constipation BMI 39.0-39.9,adult Adjustment disorder Family planning Pulmonary embolism Hypothyroidism Fibromyalgia Family History Family History Mother CVD (cardiovascular disease) Bone cancer HTN (hypertension) Diabetes Thyroid disease Father Bone cancer HTN (hypertension) Diabetes Family history of problems with anesthesia: No Surgical History Surgical History History of cholecystectomy Gastric bypass status for obesity H/O abdominoplasty H/O breast reconstruction History of appendectomy History of Problems with Anesthesia: No Social History Social History Alcohol intake: current Alcohol intake frequency: holidays/special occasions only Patient Tobacco Use Status: Never used Tobacco Use of substances other than those prescribed or required for medical reasons: No Are you DNR?: No Advance Directives: No Advance Directives Information Provided: Yes Patient : Yes FDLMP: 2022 Meds Allergies Allergy/AdvReac Type Severity Reaction Status Date / Time No Known Allergies Allergy Verified 03/26/25 09:50 Home Medications ?Medication ?Instructions ?Recorded ?Confirmed ?Last Taken ?Type ibuprofen 600 mg tablet 600 mg PO Q8H PRN Pain 08/24/20 01/22/25 Unknown History levothyroxine 125 mcg tablet 125 mcg PO DAILY 08/24/20 01/22/25 07/05/23 History (Synthroid) duloxetine 30 mg capsule,delayed 50 mg PO BEDTIME 12/29/21 01/22/25 Unknown History release cyclobenzaprine 10 mg tablet 10 mg PO BEDTIME 05/07/23 01/22/25 Unknown History duloxetine 60 mg capsule,delayed 60 mg PO BEDTIME 05/07/23 01/22/25 Unknown History release topiramate 50 mg capsule,extended 50 mg PO DAILY 12/12/23 12/12/23 Unknown History release 24 hr Assessment and Plan Assessment Anesthesia Assessment: Chart Reviewed Final Anesthetic Review Family History of Problems with Anesthesia: No History of Problems with Anesthesia: No Documented by User: Susie Stahl MD 03/26/25 11:19 PMFSH Past Medical History Medical History Screening for colon cancer Constipation BMI 39.0-39.9,adult Adjustment disorder Family planning Pulmonary embolism Hypothyroidism Fibromyalgia Family History Family History Mother CVD (cardiovascular disease) Bone cancer HTN (hypertension) Diabetes Thyroid disease Father Bone cancer HTN (hypertension) Diabetes Surgical History Surgical History History of cholecystectomy Gastric bypass status for obesity H/O abdominoplasty H/O breast reconstruction History of appendectomy Social History Social History Alcohol intake: current Alcohol intake frequency: holidays/special occasions only Patient Tobacco Use Status: Never used Tobacco Use of substances other than those prescribed or required for medical reasons: No Are you DNR?: No Advance Directives: No Advance Directives Information Provided: Yes Patient : Yes FDLMP: 2022 Meds Allergies Allergy/AdvReac Type Severity Reaction Status Date / Time No Known Allergies Allergy Verified 03/26/25 09:50 Home Medications ?Medication ?Instructions ?Recorded ?Confirmed ?Last Taken ?Type ibuprofen 600 mg tablet 600 mg PO Q8H PRN Pain 11/24/20 04/24/25 Unknown History levothyroxine 125 mcg tablet 125 mcg PO DAILY 08/24/20 01/22/25 07/05/23 History (Synthroid) duloxetine 30 mg capsule,delayed 50 mg PO BEDTIME 12/29/21 01/22/25 Unknown History release cyclobenzaprine 10 mg tablet 10 mg PO BEDTIME 05/07/23 01/22/25 Unknown History duloxetine 60 mg capsule,delayed 60 mg PO BEDTIME 05/07/23 01/22/25 Unknown History release topiramate 50 mg capsule,extended 50 mg PO DAILY 12/12/23 12/12/23 Unknown History release 24 hr Exam Airway Mallampati Class: II TM Dist: >3cm Neck ROM: Full Heart: rrr Lungs: cta Assessment and Plan Assessment Anesthesia Assessment: Anesthesia Plan Discussed Final Anesthetic Review NPO: Yes ASA Class: II Final Preanesthetic Review: No Changes in Pt Med Stat, Meds/Allgs Chart Reviewed, Consent Obtained/Reviewed and Anes Risks/Benef Reviewed Patient Risk: Low Procedure Risk: Low Anesthetic Plan Anesthetic Plan: MAC: Disposition: Standard PACU
[2025-03-26 09:59] LABS: UPreg QC Valid YES; Urine Pregnancy NEGATIVE (NEGATIVE)
[2025-03-26 10:07] VITALS: BP 118/74; PULSE 77; RESP 12; TEMP 36.6; O2SAT 97; BMI 33.3
[2025-03-26] MEDS: Lactated Ringers 1,000 ML 100 ML IVCONT (10:14)
--- NOTE | 2025-03-26 11:19 | P.HPSUR_ITS ---
Pre-Procedural Eval Section A - 24 Hr Update-Section A only Date of Service: 03/26/25 Section B - Complete if H&P > 30 days Chief Complaint: Encounter for screening for malignant neoplasm of Relevant Family History (Specify if Yes): No Relevant Social History: None Present Medications: see Short Stay Collaborative assessment Medical History: Significant History (Constipation BMI 39.0-39.9,adult Adjustm ent disorder Family planning Pulmonary embolism Hypothyroidism Fibromyalgia) History of Previous Operations: Relevant previous surgery/procedure and date(s) (History of cholecystectomy Gastric bypass status for obesity H/O abdominoplasty H/O breast reconstruction History of appendectomy) Allergies: Allergies Allergy/AdvReac Type Severity Reaction Status Date / Time No Known Allergies Allergy Verified 03/26/25 09:50 Review of Systems Sugical H&P ROS: Negative: Constitution, Cardiovascular, Respiratory, Neurological, Psychiatric, Hem-Onc, Allergic/Immunologic, Gastrointestinal, Genitourinary, Musculoskeletal, Integumentary, Endocrine and Eyes/Ear s/Nose/Throat Exam Surgical H&P Exam: Normal: HEENT, Normal: Heart, Normal: Lungs, Normal: Extremities, Normal: Abdomen, Normal: Skin and Normal: Neurological Plan Diagnosis/Plan: Unchanged I have reviewed the history and physical and performed a pertinent physical examination on my patient. No changes have occurred unless specified. Time Spent With Patient Time: Total time managing care of this patient today ____ minutes.
--- NOTE | 2025-03-26 11:54 | P.OPN-COLO_ITS ---
Colonoscopy Operative Note Operative Note Date of Service: 03/26/25 Narrative: Operative Information Procedure Description: Colonoscopy Indication: screening Anesthesia: MAC COLONOSCOPY Instrument: Olympus variable stiffness pediatric scope 190L Colonoscopy Monitoring: Vital signs and clinical assessment, continuous EKG monitoring, Pulse oximetry, Carbon Dioxide monitoring and blood pressure monitoring were done throughout the procedure. Colon withdrawal time was 13 minutes. Procedure: The patient was placed in the left lateral decubitis position and pre-procedure medications were administered. After a digital rectal examination of the ano-rectum, the video colonoscope was inserted into the rectum and advanced through the colon to the cecum/TI. The colonoscope was slowly withdrawn in a retrograde panoramic fashion and the colon mucosa was carefully examined including a retroflexed view of the rectum. Findings and interventions are described below. Procedure Difficulty: moderate, tortuous colon, pressure applied Findings: Terminal Ileum-normal melanosis coli noted Cecum:normal Ascending Colon: normal Transverse Colon -normal Descending Colon: x 1 sessile polyp 4-5 mm removed with cold forceps Sigmoid Colon: x 1 sessile polyp 4-5 mm removed with cold forceps Rectum: Retroflexion with small internal hemorrhoids seen, grade I Anorectum - normal Intervention: cold forceps Colon preparation: [place] Bowel Preparation Scale Right colon; 2 Transverse colon: 2 Left colon; 2 (0 = Unprepared colon segment with mucosa not seen due to solid stool that cannot be cleared. 1 = Portion of mucosa of the colon segment seen, but other areas of the colon segment not well seen due to staining, residual stool and/or opaque liquid. 2 = Minor amount of residual staining, small fragments of stool and/or opaque liquid, but mucosa of colon segment seen well. 3 = Entire mucosa of colon segment seen well with no residual staining, small fragments of stool or opaque liquid) Impression and Post Procedure Diagnosis: melanosis coli tortuous colon colon polyps x 2 internal hemorrhoids Plan: High fiber diet leaflet Avoid straining at stool, epsom salts and sitz bath, anusol supps or cream Repeat Colonoscopy in 5 years if adenomatous polyps, 10 yrs if hyperplastic or earlier if clinically indicated avoid senna containing laxatives , can use other types Above findings were reviewed with the patient and relevant handouts were provided if indicated.
[2025-03-26 12:00] VITALS: BP 108/60; PULSE 81; RESP 17; TEMP 36.4; O2SAT 98
[2025-03-26 12:15] VITALS: BP 118/62; PULSE 73; RESP 15; O2SAT 99
[2025-03-26 12:30] VITALS: BP 116/67; PULSE 74; RESP 15; O2SAT 99
[2025-03-26 12:45] VITALS: BP 116/67; PULSE 74; RESP 15; TEMP 36.1; O2SAT 99
== END 2025-03-26 13:24 | disposition home or self-care (01) ==
PROVIDERS: Nurse Practitioner; PCP Internal Medicine; Visit Provider Internal Medicine Gastroenterology
PROC: 0DJD8ZZ Inspection of Lower Intestinal Tract, Via Natural or Artificial Opening Endoscopic (ICD-10-PCS; CPT 45378; principal; 2025-03-26 12:30)
DX: Z12.11 Encounter for screening for malignant neoplasm of colon (principal); D12.4 Benign neoplasm of descending colon; K56.2 Volvulus; K63.89 Other specified diseases of intestine; K64.0 First degree hemorrhoids; K59.00 Constipation, unspecified; E03.9 Hypothyroidism, unspecified; E55.9 Vitamin D deficiency, unspecified; M79.7 Fibromyalgia; J45.909 Unspecified asthma, uncomplicated; E66.811 Obesity, class 1; Z68.33 Body mass index [BMI] 33.0-33.9, adult; Z86.711 Personal history of pulmonary embolism; Z79.899 Other long term (current) drug therapy
CPT/HCPCS: 45380; 81025; 88305; J2003; J2704

== ENCOUNTER → 2025-03-26 09:28 | Outpatient (BNV) | payer OTHER, SELFPAY | PROVIDERS: PCP Internal Medicine; Visit Provider Internal Medicine Gastroenterology | DX: Z12.11 Encounter for screening for malignant neoplasm of colon (principal); K63.89 Other specified diseases of intestine; D12.4 Benign neoplasm of descending colon; D12.5 Benign neoplasm of sigmoid colon; K64.0 First degree hemorrhoids | CPT/HCPCS: 45380 ==

== ENCOUNTER 2025-04-10 12:54 | Outpatient (REF) | payer OTHER, SELFPAY ==
--- OUTSIDE RECORDS SUMMARY | 2025-03-31 09:20 | XMS_ITS ---
Author Organization [facility] Address [address] [place] [address] Care Team Providers Care Interior Wirer Name Role Phone Nini Ann Primary Care Provider Unavailab Presley Bronson [phone] REASON FOR VISIT Patient presents today for a screening colonoscopy Encounters Encounter Location Date Provider Diagnosis [facility] [address] [place] [phone] 03/31/2025 Presley Quiroz Plan Of Treatment No Information Progress Notes * KELLEN GERMANDOB: [birth year] (44 yo F)Acc No.[id number]:03/31/2025 Progress Notes Patient: KELLEN HAMILTON Provider: Joni Quiroz MD :1980 A ge:44 Y S ex:Female Date:03/31/2025 Address:[address] [place] [address] [address] Pcp:Nini Ann Subjective: * Chief Complaints: * [...] Pending * Provider: Joni Quiroz MD Date: 03/31/2025 Generated for Amando hauser/Marleni/Nikolasitting on: 04/10/2025 12:57 PM EDT
[2025-04-10 13:08] LABS: MANUAL DIFF FLAG NO
[2025-04-10 14:16] LABS: Hematocrit 40.4 % (37.0-47.0); Hemoglobin 13.6 g/dl (12.0-16.0); Imm Gran Abs Auto 0.02 X10*3/uL (0.00-0.03); Imm Gran Pct Auto 0.4 % (0.0-0.4); Lymphocytes Absolute Auto 1.6 X10*3/uL (1.2-4.9); Mean Corpuscular HGB Conc 33.7 g/dl (31.0-35.0); Mean Corpuscular Hemoglobin 30.0 pg (27.0-33.0); Mean Corpuscular Volume 89.0 fL (80.0-98.0); NRBC Abs Auto 0.000 X10*3/uL (0.0-0.012); NRBC Pct Auto 0.0 /100WBC (0.0-0.2); Platelet Count 259 X10*3/uL (160-400); Red Blood Count 4.54 X10*6/uL (4.20-5.50); White Blood Count 5.5 X10*3/uL (4.8-10.8)
[2025-04-10 15:08] LABS: Ferritin 9 ng/mL (10-250); Thyroid Stimulating Hormone 2.05 uIU/mL (0.32-4.0)
== END 2025-04-10 12:55 | disposition home or self-care (01) ==
LOC: HO.LAB 12:54
PROVIDERS: PCP Internal Medicine; Visit Provider Internal Medicine
DX: G43.719 Chronic migraine without aura, intractable, without status migrainosus (principal); G47.00 Insomnia, unspecified; M79.7 Fibromyalgia; R53.83 Other fatigue; Z98.84 Bariatric surgery status
CPT/HCPCS: 36415; 82728; 84443; 85025; 85652; 86200; 86431

== ENCOUNTER 2025-04-19 00:24 | Emergency (ER) | payer OTHER, SELFPAY ==
[2025-04-19] VITALS (7 sets, daily range): BP systolic 121–158; BP diastolic 66–85; PULSE 64–81; RESP 16–18; TEMP 36.7–37.1; O2SAT 96–99; BMI 32.8
--- NOTE | 2025-04-19 04:46 | ED_ITS ---
HPI - General Adult General Chief complaint: Weakness Stated complaint: body aches Time Seen by Provider: 04/19/25 04:30 Source: patient and family () Mode of arrival: ambulatory Limitations: language barrier (Patient's 1st language is Montserratian, patient's speaks some Tajik, iPad blown film extrusion operator was used) History of Present Illness ED Provider: Dr. Cuauhtemoc Pires HPI narrative: 44-year-old female with a history of fibromyalgia, hypothyroidism, depression, pulmonary embolism, polyarthralgia who presents emergency department for evaluation of body aches, lethargy, weakness and fatigue. Patient states that over the last 10 days she has developed pain in her muscles and joints, she describes it as a constant, dull pain which is 8/10 at its worst. Patient was seen by your PCP 5 days prior who felt that the patient may be having a fibromyalgia flare-up. The patient takes duloxetine 3 times a day for her pain and her PCP started her on Topamax. She states despite taking this medication she is not feeling any better. She denied fever, chills, chest pain, shortness of breath, nausea, vomiting, diarrhea, frequency, urgency or dysuria. Related Data Home Medications ?Medication ?Instructions ?Recorded ?Confirmed ibuprofen 600 mg tablet 600 mg PO Q8H PRN Pain 08/2401/22/25 levothyroxine 125 mcg tablet 125 mcg PO DAILY 08/24/20 01/22/25 (Synthroid) duloxetine 30 mg capsule,delayed 50 mg PO BEDTIME 12/0101/22/25 release cyclobenzaprine 10 mg tablet 10 mg PO BEDTIME 05/07/23 01/22/25 duloxetine 60 mg capsule,delayed 60 mg PO BEDTIME 04/2201/22/25 release topiramate 50 mg capsule,extended 50 mg PO DAILY 12/1112/12/23 release 24 hr Previous Rx's ?Medication ?Instructions ?Recorded cholecalciferol (vitamin D3) 50 50 mcg PO DAILY #30 ca ps 05/18/23 mcg (2,000 unit) capsule vitamin A palmitate 3,000 mcg 6,000 mcg (2 x 3,000 mcg (10,000 05/22/23 (10,000 unit) capsule unit)) PO DAILY 2 weeks #28 caps bisacodyl 5 mg tablet,delayed 5 mg PO ONCE 1 day #3 ta bs 01/22/25 release methylcellulose (laxative) 500 mg 500 mg PO DAILY #90 tabs 01/22/25 tablet (Citrucel) polyethylene glycol 3350 17 17 g PO DAILY constipation 30 days 01/22/25 gram/dose oral powder (Miralax) #238 grams polyethylene glycol 3350 17 238 g PO ONCE #238 grams 0 01/22/25 gram/dose oral powder (Miralax) morphine 15 mg immediate release 15 mg PO Q6H PRN pain #10 tabs 04/19/25 tablet prednisone 20 mg tablet 40 mg (2 x 20 mg) PO DAILY 5 days 04/19/25 #10 tabs Allergies Allergy/AdvReac Type Severity Reaction Status Date / Time No Known Allergies Allergy Verified 04/19/25 00:44 Review of Systems 2 Review of Systems: Yes all other systems are reviewed and are negative [facility] Past Medical History [facility] Narrative: Social history: She is . Her is here in the emergency department with her. She denies tobacco use. She states she drinks alcohol socially. She denies drug use. Medical History Screening for colon cancer Constipation BMI 39.0-39.9,adult Adjustment disorder Family planning Pulmonary embolism Hypothyroidism Fibromyalgia Surgical History History of cholecystectomy Gastric bypass status for obesity H/O abdominoplasty H/O breast reconstruction History of appendectomy Family History Family History Mother CVD (cardiovascular disease) Bone cancer HTN (hypertension) Diabetes Thyroid disease Father Bone cancer HTN (hypertension) Diabetes Social History Social History Alcohol intake: current Alcohol intake frequency: holidays/special occasions only Patient Tobacco Use Status: Never used Tobacco Smoked in Last 30 Days: No Use of substances other than those prescribed or required for medical reasons: No Advance Directives: No Advance Directives Information Provided: Yes Do you have a plan to hurt others: No Plan Patient : No Physical Exam ED Vital Signs: Vital Signs - 24 hr 04/19/25 00:40 04/19/25 02:43 04/19/25 04:56 Temperature 98.8 F 98.2 F 98.2 F Pulse Rate 76 69 64 Respiratory Rate 17 18 18 Blood Pressure 124/73 122/78 121/70 Pulse Oximetry 96 99 96 Oxygen Delivery Method Room Air Room Air Room Air 04/19/25 05:45 04/19/25 06:07 Temperature 98.3 F Pulse Rate 69 Respiratory Rate 18 18 Blood Pressure 158/85 H Pulse Oximetry 98 Oxygen Delivery Method Room Air BMI result Body Mass Index 32.8 Vital signs were normal Exam: General: Awake, alert in no distress Head: Normocephalic, atraumatic EENT: PERRL, Lids normal, sclera normal, conjunctiva normal, nose normal , ears normal, throat without erythema or exudates Neck: Supple, no adenopathy Lung: breath sounds symmetric, no wheezing, rales or rhonchi Chest: symmetric movement, nontender Heart: regular rate and rhythm, normal S1, S2 no murmurs or rubs Abdomen: soft, non-tender, nondistended, normal bowel sounds Back: no vertebral tenderness, no CVAT Extremities: no deformities, moves all extremities symmetrically patient has tenderness palpation over the joints of her shoulder, elbows, wrist, knees and ankles. There is no erythema or increased warmth over her joints. Muscle: Patient has tenderness palpation over her trapezius muscles, deltoid muscles, biceps, calves and feet muscles Neuro: Awake, alert, oriented, normal speech, cranial nerves intact, moves all extremities symmetrically Psych: Pleasant, cooperative Medications Administered Discontinued Medications Generic Name Dose Route Start Last Admin Trade Name Amy PRN Reason Stop Dose Admin Famotidine 20 mg 04/19/25 06:22 04/19/25 06:41 Famotidine/Pf 20 Mg/2 Ml Vial IVPUSH 04/19/25 06:23 20 mg ONCE ONE Administration Methylprednisolone Sodium Succinate 60 mg 04/19/25 04:46 04/19/25 05:23 Methylprednisolone Sod Succ 125 Mg/2 Ml Vial IVPUSH 04/19/25 04:47 60 mg ONCE ONE Administration Morphine Sulfate 4 mg 04/19/25 04:46 04/19/25 05:23 Morphine Sulfate 4 Mg/Ml Cartridge IVPUSH 4 mg Q20M PRN Administration Pain, Severe (Pain Scale 7-10) Protocol Morphine Sulfate 4 mg 07/20/25 06:24 04/19/25 06:40 Morphine Sulfate 4 Mg/Ml Cartridge IVPUSH 04/19/25 06:25 4 mg ONCE STA Administration Protocol Medical Decision Making Medical Decision Making [facility] Narrative: 44-year-old female with a history of fibromyalgia, hypothyroidism, depression, pulmonary embolism, polyarthralgia who presents emergency department for evaluation of body aches, lethargy, weakness and fatigue. Patient states that over the last 10 days she has developed pain in her muscles and joints, she describes it as a constant, dull pain which is 8/10 at its worst. Patient was seen by your PCP 5 days prior who felt that the patient may be having a fibromyalgia flare-up. The patient takes duloxetine 3 times a day for her pain and her PCP started her on Topamax. She states despite taking this medication she is not feeling any better. She denied fever, chills, chest pain, shortness of breath, nausea, vomiting, diarrhea, frequency, urgency or dysuria. Initial vital signs were normal. Examination revealed tenderness palpation of her muscles and joints with no erythema or increased warmth of the joints. Differential diagnosis: ?Includes but is not limited to fibromyalgia flare, rhabdomyolysis, inflammatory arthritis, anemia, electrolyte abnormalities Course: My independent interpretation patient's laboratory evaluation is as follows: CBC was normal. CMP was normal. CRP and ESR were normal. Patient's presentation most likely caused by a flare-up of her fibromyalgia and I did discuss this with the patient. The patient was treated with Solu- Medrol 60 mg IV, Pepcid 20 mg IV, morphine 4 mg IV x2. The patient did get improvement with his treatments. I advised the patient to continue taking the medications prescribed by her provider for her fibromyalgia. Patient was given a a pulse dose course of prednisone 40 mg once a day for 5 days, she was advised to take extra-strength Tylenol 1000 mg every 6 hours and for pain not relieved by her prednisone and Tylenol she was prescribed morphine 15 mg every 6 hours as needed for pain. She was given printed and verbal instructions and discharged home. Admission/Observation Consideration of admission/observation: Escalation of care including admission/observation considered ( Yes) Lab Data [facility] Lab Attestation statement: I reviewed the patient's lab results. 04/19/25 04:52 04/19/25 04:52 Labs: Lab Results 04/19/25 Range/Units 04:52 WBC 6.8 (4.8-10.8) X10*3/uL RBC 4.38 (4.20-5.50) X10*6/uL Hgb 13.2 (12.0-16.0) g/dl Hct 38.9 (37.0-47.0) % MCV 88.8 (80.0-98.0) fL MCH 30.1 (27.0-33.0) pg MCHC 33.9 (31.0-35.0) g/dl RDW 14.6 (11.0-16.0) % Plt Count 257 (160-400) X10*3/uL MPV 12.1 (9.4-12.3) fL Immature Gran % (Auto) 0.1 (0.0-0.4) % Neut % (Auto) 59.6 (45-73) % Lymph % (Auto) 29.7 (20-40) % [place] % (Auto) 8.7 (2-11) % Eos % (Auto) 1.3 (0-4) % Baso % (Auto) 0.6 (0-2) % Lymph # (Auto) 2.0 (1.2-4.9) X10*3/uL [place] # (Auto) 0.6 (0.1-1.2) X10*3/uL Eos # (Auto) 0.1 (0.0-0.4) X10*3/uL Baso # (Auto) 0.0 (0.0-0.2) X10*3/uL Abs Immat Gran (auto) 0.01 (0.00-0.03) X10*3/uL Absolute Neuts (auto) 4.1 (2.0-8.3) x10*3/uL Absolute Nucleated RBC 0.000 (0.0-0.012) X10*3/uL Nucleated RBC % (auto) 0.0 (0.0-0.2) /100WBC ESR 8 (0-20) MM/HR Sodium 144 (135-145) mmol/L Potassium 3.7 (3.3-5.1) mmol/L Chloride 110 H (96-108) mmol/L Carbon Dioxide 23 (22-29) mmol/L Anion Gap 15 (12-20) BUN 12 (9-16) mg/dL Creatinine 0.60 (0.5-1.4) mg/dL Estim Creat Clear Calc 129.4 Estimated GFR > 60 Random Glucose 92 (60-115) mg/dL Calcium 9.1 (8.4-10.2) mg/dL Magnesium 2.2 (1.6-2.6) mg/dL Total Bilirubin 0.3 (0.0-1.0) mg/dL AST 18 (5-31) U/L ALT 17 (0-31) U/L Alkaline Phosphatase 106 (39-117) U/L Total Creatine Kinase 60 (26-140) U/L C-Reactive Protein < 0.10 (< or = 0.50) mg/dL Total Protein 7.2 (6.5-8.0) g/dL Albumin 4.5 (3.5-5.0) g/dL Lipase 14 (8-78) U/L TSH 1.54 (0.32-4.0) uIU/mL Independent Historian Clinical information obtained from an independent historian. History obtained from or confirmed by: Spouse Prescription Management I considered prescription management with: Pain Medication ( morphine) Chronic Conditions Patient?s care impacted by: Other ( fibromyalgia) Discharge Plan Discharge Clinical Impression: Muscle pain, fibromyalgia Patient Disposition: Home, Self-Care Instructions: Fibromyalgia (ED) Additional Instructions: Your blood work was unremarkable. You were treated in the emergency department with Solu-Medrol (anti-inflammatory steroid), Pepcid and morphine. Take prednisone 20 mg pills, 3 pills once a day for 5 days. While you ?are taking prednisone, do not take any NSAIDs (Motrin, Advil, ibuprofen, Aleve, naproxen). Take your 1st dose of prednisone tomorrow morning (04/20/2025). Take extra-strength Tyleno (acetaminophen) l 500 mg pills, 2 pills every 6 hours as needed for pain. For pain not relieved by ibuprofen or Tylenol take morphine 15 mg pills, 1 pill every 6 hours as needed for pain. This medication will make you sleepy, do not drive or work while taking this medication. Morphine is a narcotic medication and can be addicting. If you are concerned about addiction you can ask the pharmacist for less pills or do not get this prescription filled. Follow-up with your doctor in 2 days. Please return to the emergency department if your symptoms get worse or if you develop any symptoms that are concerning to you. Prescriptions: New prednisone 20 mg tablet 40 mg PO DAILY 5 Days Qty: 10 0RF morphine 15 mg tablet 15 mg PO Q6H PRN (Reason: pain) Qty: 10 0RF Rx Instructions: Partial Fill upon patient request. No Action cholecalciferol (vitamin D3) 50 mcg (2,000 unit) capsule 50 mcg PO DAILY Qty: 30 11RF vitamin A palmitate 3,000 mcg (10,000 unit) capsule 6,000 mcg PO DAILY 14 Days Qty: 28 0RF duloxetine 30 mg capsule,delayed release(DR/EC) 50 mg PO BEDTIME levothyroxine [Synthroid] 125 mcg tablet 125 mcg PO DAILY ibuprofen 600 mg tablet 600 mg PO Q8H PRN (Reason: Pain) duloxetine 60 mg capsule,delayed release(DR/EC) 60 mg PO BEDTIME cyclobenzaprine 10 mg tablet 10 mg PO BEDTIME topiramate 50 mg capsule,extended release 24hr 50 mg PO DAILY polyethylene glycol 3350 [Miralax] 17 gram/dose powder 238 g PO ONCE Qty: 238 0RF Rx Instructions: per colonoscopy prep instructions bisacodyl 5 mg tablet,delayed release (DR/EC) 5 mg PO ONCE 1 Days Qty: 3 0RF Rx Instructions: per colonoscopy instructions Citrucel 500 mg tablet 500 mg PO DAILY Qty: 90 1RF polyethylene glycol 3350 [Miralax] 17 gram/dose powder 17 g PO DAILY 30 Days Qty: 238 2RF Rx Instructions: Take 17G (one cap full) daily with 8oz of water Interventions: ED Discharge Assessment Last Done: 04/19/25 08:02 Discharge Date/Time: 04/19/25 08:03 Print Language: Montserratian
[2025-04-19 04:58] LABS: MANUAL DIFF FLAG NO
[2025-04-19 04:59] LABS: Hematocrit 38.9 % (37.0-47.0); Hemoglobin 13.2 g/dl (12.0-16.0); Imm Gran Abs Auto 0.01 X10*3/uL (0.00-0.03); Imm Gran Pct Auto 0.1 % (0.0-0.4); Lymphocytes Absolute Auto 2.0 X10*3/uL (1.2-4.9); Mean Corpuscular HGB Conc 33.9 g/dl (31.0-35.0); Mean Corpuscular Hemoglobin 30.1 pg (27.0-33.0); Mean Corpuscular Volume 88.8 fL (80.0-98.0); NRBC Abs Auto 0.000 X10*3/uL (0.0-0.012); NRBC Pct Auto 0.0 /100WBC (0.0-0.2); Platelet Count 257 X10*3/uL (160-400); Red Blood Count 4.38 X10*6/uL (4.20-5.50); White Blood Count 6.8 X10*3/uL (4.8-10.8)
[2025-04-19 05:21] LABS: Alanine Aminotransferase 17 U/L (0-31); Albumin Level 4.5 g/dL (3.5-5.0); Alkaline Phosphatase 106 U/L (39-117); Anion Gap 15 (12-20); Aspartate Amino Transferase 18 U/L (5-31); Blood Urea Nitrogen 12 mg/dL (9-16); Calcium 9.1 mg/dL (8.4-10.2); Carbon Dioxide 23 mmol/L (22-29); Chloride 110 mmol/L (96-108); Creatinine Clr Calc Pharmacy 129.4; Estimated Glomerular Filt Rate > 60; Lipase 14 U/L (8-78); Magnesium 2.2 mg/dL (1.6-2.6); Potassium 3.7 mmol/L (3.3-5.1); Sodium 144 mmol/L (135-145); Total Protein 7.2 g/dL (6.5-8.0)
--- NOTE | 2025-04-19 07:07 | PC.NURSE ---
Medical History Screening for colon cancer Constipation BMI 39.0-39.9,adult Adjustment disorder Family planning Pulmonary embolism Hypothyroidism Fibromyalgia
== END 2025-04-19 08:03 | disposition home or self-care (01) ==
PROVIDERS: Emergency Provider Emergency Medicine Emergency Medical Services; PCP Internal Medicine
DX: M79.7 Fibromyalgia (principal); R53.1 Weakness; Z86.711 Personal history of pulmonary embolism; Z79.899 Other long term (current) drug therapy
CPT/HCPCS: 36415; 80053; 82550; 83690; 83735; 84443; 85025; 85652; 86140; 96374; 96375; 96376; 99284; J1308; J2270; J2919

== ENCOUNTER 2025-06-18 11:27 | Outpatient (REF) | payer OTHER, SELFPAY ==
[2025-06-19 13:30] LABS: CT PCR NOT DETECTED (Not Detect.)
[2025-06-19 13:31] LABS: NG PCR NOT DETECTED (Not Detect.)
== END 2025-06-18 11:28 | disposition home or self-care (01) ==
LOC: HO.LNP 11:27
PROVIDERS: PCP Internal Medicine; Visit Provider Obstetrics & Gynecology
DX: Z01.419 Encounter for gynecological examination (general) (routine) without abnormal findings (principal); Z12.31 Encounter for screening mammogram for malignant neoplasm of breast; Z20.2 Contact with and (suspected) exposure to infections with a predominantly sexual mode of transmission; Z11.51 Encounter for screening for human papillomavirus (HPV); Z93.9 Artificial opening status, unspecified
CPT/HCPCS: 87491; 87591; 87626; 88175

== ENCOUNTER 2025-06-18 11:27 | Outpatient (AMB) | payer OTHER, SELFPAY ==
--- NOTE | 2025-06-18 11:33 | A.OFFVIS_ITS ---
Vital Signs 06/18/25 11:36 Height 5 ft 4 in Weight 200 lb BMI 34.3 BP 102/68 Intake Visit Reasons: Annual? Mirena removal DO NOT RESCHEDULE! Infantry Operations Specialist Required: Yes Infantry Operations Specialist Language: Business Representative Services: Infantry Operations Specialist Present (in person) Infantry Operations Specialist Name: Shantell HERNANDEZ Information Interpreted: non-clinical & clinical Compressor Operator Adjuster: Compressor Operator Adjuster Present (Shantell HERNANDEZ) Accompanied by: Self / Same As Patient Allergies No Known Allergies Allergy (Verified 06/18/25 11:38) Is last menstrual period known: No (mirena) HPI Comments Details: Presenting for annual exam. Complaining of continuous spotting Mirena IUD which was inserted 2 years ago Last Pap/HPV? Last Mammogram in 02/21 was BI-RADS 1 Last colonoscopy in 03/25 recommendation was to repeat in 5 years [facility] Medical History Screening for colon cancer Constipation BMI 39.0-39.9,adult Adjustment disorder Family planning Pulmonary embolism Hypothyroidism Fibromyalgia Surgical History History of cholecystectomy Gastric bypass status for obesity H/O abdominoplasty H/O breast reconstruction History of appendectomy Family History Mother CVD (cardiovascular disease) Bone cancer HTN (hypertension) Diabetes Thyroid disease Breast cancer Father Bone cancer HTN (hypertension) Diabetes Prostate cancer Brother HTN (hypertension) Social History Household Members: Spouse Housing: Apartment Alcohol intake: current Alcohol intake frequency: holidays/special occasions only Patient Tobacco Use Status: Never used Tobacco Current occupational status: unemployed Sexually active: Yes Sexual orientation: Straight/Heterosexual Gender identity: Female Female Reproductive History Menstrual Age of Menarche: 12 control method: progestin IUCD Total pregnancies: 0 Date of Mammogram: 02/27/24 Review of Systems Const All systems reviewed & are unremarkable except as noted in HPI and below Card Reports as per HPI Resp Reports as per HPI GI Reports as per HPI and Reports no additional complaints Reports as per HPI Physical Exam Vital Signs: Last Vital Signs BP 102/68 06/18/25 11:36 BMI result Body Mass Index 34.3 Const General: cooperative, healthy appearing and comfortable Chest Chest palpation & inspection: normal inspection of the chest and normal palpation of entire chest wall Breast/axilla inspection: normal inspection of the breasts and normal inspection of the axillae Breast/axilla palpation: normal palpation of the breasts, normal palpation of the axillae and no axillary lymphadenopathy Resp Effort & Inspection: normal respiratory effort Auscultation: clear to auscultation bilaterally Percussion: percussion normal Cardio Palpation: normal PMI Rate: regular rate Rhythm: regular rhythm Heart sounds: no murmurs and no rubs Peripheral pulses: Peripheral pulses 2+ throughout GI Inspection: Yes normal to inspection Palpation (GI): Soft to palpation, nontender, no guarding, not rigid and No hepatosplenomegaly present Percussion: Yes normal to percussion Auscultation: normal bowel sounds Rectal Exam - Female: deferred General: Yes bladder normal to palpation External Female Exam: No lesion Speculum Exam - Vagina: normal appearance of the vagina, normal palpation, normal vaginal discharge and not erythematous Speculum Exam - Cervix: normal appearance of the cervix, normal palpation and Other cervical findings present (IUD thread in place) Bimanual exam- vagina & uterus: normal bimanual exam, normal palpation, uterine size normal, bladder normal to palpation, consistency normal and normal palp ation Bimanual Exam- Adnexa, other: normal adnexae, no masses and no tenderness Assessment & Plan Assessment & Plan (1) Well woman exam: Code(s): Z01.419 - Encounter for gynecological examination (general) (routine) without abnormal findings Category: Medical Plan: Cotesting done. Mammogram ordered. Counseled the patient about the recommended dietary allowance of 1000 mg of Calcium & 600 IU of vitamin D. The patient was instructed to perform monthly self-breast exams and to schedule an annual exam in a year; All questions answered and the patient verbalized understanding. Instructed the patient to schedule annual exam in a year (2) Abnormal uterine bleeding (AUB): Comment: On Mirena IUD Code(s): N93.9 - Abnormal uterine and vaginal bleeding, unspecified Category: Medical Plan: Co testing done, GC and chlamydia taken CBC, TSH, HCG, and pelvic ultrasound ordered. Discussed with the patient the different causes of abnormal bleeding including thyroid disorders, uterine and ovarian pathology, endometrial hyperplasia, carcinoma and other potential causes. Discussed with the patient the work up including CBC (to r/o anemia), TSH, pelvic Ultrasound, endometrial biopsy to r/o endometrial pathology. All questions answered and the patient verbalized understanding. Instructed the patient to schedule an appointment for an endometrial biopsy in 2 weeks. Orders: Orders HCG Quantitative Today N93.9 - Abnormal uterine and vaginal bleeding, unspecified US pelvic and transvaginal Today N93.9 - Abnormal uterine and vaginal bleeding, unspecified MM tomosynthesis screen imp BI Today Z12.31 - Encounter for screening mammogram for malignant neoplasm of breast TSH reflex Free T4 Today N93.9 - Abnormal uterine and vaginal bleeding, unspecified Complete Blood Count no Diff Today N93.9 - Abnormal uterine and vaginal bleeding, unspecified Coding Level of Care Code New Pt Prev Care 40-64y(04439) Diagnoses Well woman exam Z01.419 Abnormal uterine bleeding (AUB) N93.9
[2025-06-18 11:36] VITALS: BP 102/68; BMI 34.3
== END 2025-06-18 12:22 | disposition home or self-care (01) ==
LOC: HO.HWS 11:27
PROVIDERS: PCP Internal Medicine; Visit Provider Obstetrics & Gynecology
DX: Z01.419 Encounter for gynecological examination (general) (routine) without abnormal findings (principal); N93.9 Abnormal uterine and vaginal bleeding, unspecified
CPT/HCPCS: 99386; 99459

== ENCOUNTER 2025-06-18 12:16 | Outpatient (REF) | payer OTHER, SELFPAY ==
[2025-06-18 13:44] LABS: Hematocrit 41.7 % (37.0-47.0); Hemoglobin 13.9 g/dl (12.0-16.0); Mean Corpuscular HGB Conc 33.3 g/dl (31.0-35.0); Mean Corpuscular Hemoglobin 30.3 pg (27.0-33.0); Mean Corpuscular Volume 90.8 fL (80.0-98.0); NRBC Abs Auto 0.000 X10*3/uL (0.0-0.012); NRBC Pct Auto 0.0 /100WBC (0.0-0.2); Platelet Count 262 X10*3/uL (160-400); Red Blood Count 4.59 X10*6/uL (4.20-5.50); White Blood Count 7.3 X10*3/uL (4.8-10.8)
== END 2025-06-18 12:17 | disposition home or self-care (01) ==
LOC: HO.LAB 12:16
PROVIDERS: PCP Internal Medicine; Visit Provider Obstetrics & Gynecology
DX: N93.9 Abnormal uterine and vaginal bleeding, unspecified (principal); Z13.29 Encounter for screening for other suspected endocrine disorder
CPT/HCPCS: 36415; 84443; 84702; 85027

== ENCOUNTER → 2025-07-02 14:50 | Outpatient (AMB) | payer OTHER, SELFPAY ==
--- OUTSIDE RECORDS SUMMARY | 2025-03-31 09:20 | XMS_ITS ---
Author Organization [facility] Address [address] [place] [address] Care Team Providers Care Water Resources Engineer Name Role Phone Nini Ann Primary Care Provider Unavailab Presley Bronson [phone] REASON FOR VISIT Patient presents today for a screening colonoscopy Encounters Encounter Location Date Provider Diagnosis [facility] [address] [place] [id number] 03/31/2025 Presley Quiroz Plan Of Treatment No Information Progress Notes * KELLEN GERMANDOB: [birth year] (44 yo F)Acc No.[id number]:03/31/2025 Progress Notes Patient: KELLEN HAMILTON Provider: Joni Quiroz MD :1980 A ge:44 Y S ex:Female Date:03/31/2025 Address:[address] [place] [address] [address] Pcp:Nini Ann Subjective: * Chief Complaints: * 1 . Patient presents today for a screening colonoscopy. * Medical History: Objective: * Vitals: Assessment: Plan: * Treatment: * * The named appointment provid er may or may not be the originator of this progress note, and it is not deemed complete until electronically signed by the appointment provider. Sign off status: Pending * Provider: Joni Quiroz MD Date: 0 03/31/2025 Generated for Amando hauser/Marleni/Kristian on: 04:19 PM EDT
--- NOTE | 2025-07-02 14:51 | MHC.OFFVIS ---
Intake Visit Reasons: migraine Allergies No Known Allergies Allergy (Verified 06/18/25 11:38) HPI Comments Details: The patient is a 44-year-old female presenting with exacerbation of fibromyalgia and chronic migraines accompanied by significant sleep disturbances. Her fibromyalgia symptoms, initially diagnosed about eight years ago, have worsened over the last three months, rendering her unable to perform daily activities without assistance. Additionally, since 2018, she has experienced more frequent and severe chronic migraines, characterized by pressure-like headaches occurring for approximately 20 days each month, often accompanied by nausea and transient blurred vision. The patient's significant sleep disruption includes restlessness and involuntary leg movements, preventing restful sleep and contributing to chronic fatigue and musculoskeletal discomfort. Despite a prior sleep study five years ago indicating poor sleep quality, the patient's sleep-related symptoms remain, influencing her fibromyalgia and migraine conditions. Historical treatment of iron deficiency anemia with periodic infusions is noted, and contributory fatigue to anemia from poor sleep and chronic pain conditions remains a concern. [facility] Medical History (Updated 07/02/25 @ 15:10 by Alejandro Bland MD) Migraines Screening for colon cancer Constipation BMI 39.0-39.9,adult Adjustment disorder Family planning Pulmonary embolism Hypothyroidism Fibromyalgia Surgical History History of cholecystectomy Gastric bypass status for obesity H/O abdominoplasty H/O breast reconstruction History of appendectomy Family History Mother CVD (cardiovascular disease) Bone cancer HTN (hypertension) Diabetes Thyroid disease Breast cancer Father Bone cancer HTN (hypertension) Diabetes Prostate cancer Brother HTN (hypertension) Social History Household Members: Spouse Housing: Apartment Alcohol intake: current Alcohol intake frequency: holidays/special occasions only Patient Tobacco Use Status: Never used Tobacco Current occupational status: unemployed Sexual orientation: Straight/Heterosexual Gender identity: Female Female Reproductive History Menstrual Age of Menarche: 12 Review of Systems Const Details: - Neurological: Reports severe headaches with throbbing sensation, nausea, blurred vision. - Musculoskeletal: Reports widespread pain affecting shoulders, hands, feet, and back. - Sleep: Reports restless sleep, feels unrefreshed, with involuntary leg movements. - General: Reports chronic fatigue. Physical Exam Neuro Other: Mental Status: Alert and oriented to person, place, and time. Normal attention. Normal spontaneous speech, fluency, and comprehension. Affect is sleepy. Cranial Nerves: CN II: Visual sanabria full to confrontation, visual acuity intact. CN III, IV, : Pupils equal, round, reactive to light and accommodation. Extraocular movements are normal. CN V: Facial sensation is normal. CN VII: Facial movements symmetrical. CN VIII: Hearing intact to bedside conversation is normal. CN IX, X: Palate elevates symmetrically. CN XI: Shoulder shrug and head turn symmetrical. CN XII: Tongue midline without atrophy or fasciculations. Motor: Deep tendon reflexes are trace to absent. Extrapyramidal: Full facial expressions and blinking. No rigidity. Movements are appropriate with no tremor or abnormality. Speech: Normal; no dysarthria or tremor. Assessment & Plan Assessment & Plan (1) Migraines: Code(s): G43.909 - Migraine, unspecified, not intractable, without status migrainosus Category: Medical Qualifiers: Migraine type: chronic migraine (15 or more days per month) without aura Status migrainosus presence: with status migrainosus Intractability: intractable Qualified Code(s): G43.711 - Chronic migraine without aura, intractable, with status migrainosus (2) Fibromyalgia: Code(s): M79.7 - Fibromyalgia Category: Medical (3) Sleep disorder: Code(s): G47.9 - Sleep disorder, unspecified Category: Medical Plan Impression: a: Chronic migraine w/o aura, which typically worsen around menopause b: Whole body pain that I believe might be due to an untreated sleep disorder c: Probably periodic limb movement disorder of sleep Rec: Lab polysomnogram Coding Level of Care Code New Pt Level 4 (27426) Diagnoses Intractable chronic migraine without aura and with status migrainosus G43.711 Migraine type: chronic migraine (15 or more days per month) without aura Status migrainosus presence: with status migrainosus Intractability: intractable Fibromyalgia M79.7 Sleep disorder G47.9
--- OUTSIDE RECORDS SUMMARY | 2025-07-02 16:19 | XMS_ITS | Patient Health Record ---
Author Organization [facility] Address [address] [place] [address] Care Team Providers Care Laundry Assistant Name Role Phone Nini Ann Primary Care Provider UnavailPresley Aguilera Unavailable [phone] Reason For Referral No Information Encounters Encounter Location Date Provider Diagnosis [facility] [address] [place] [address] 03/27/2025 Presley Quiroz Plan Of Treatment No Information Insurance Providers Payer Name Payer Address Payer Phone Subscriber Number Group Number Insured Name Patient Relationship to Insured Coverage Start Date Coverage End Date [facility] [address] [place] [address] [phone] [id number] KELLEN GERMAN Self - patient is the insured
== END ==
LOC: HO.HSM 14:51
PROVIDERS: PCP Internal Medicine; Visit Provider Psychiatry & Neurology Neurology
DX: G43.711 Chronic migraine without aura, intractable, with status migrainosus (principal); M79.7 Fibromyalgia; G47.9 Sleep disorder, unspecified
CPT/HCPCS: 99204

== ENCOUNTER 2025-07-15 12:30 | Outpatient (REF) | payer OTHER, SELFPAY ==
--- OUTSIDE RECORDS SUMMARY | 2025-03-31 09:20 | XMS_ITS ---
Author Organization [facility] Address [address] [place] [address] Care Team Providers Care Slip Feeder Name Role Phone Nini Ann Primary Care Provider Unavailab Presley Bronson [phone] REASON FOR VISIT Patient presents today for a screening colonoscopy Encounters Encounter Location Date Provider Diagnosis [facility] [address] [place] [phone] 03/31/2025 Presley Quiorz Plan Of Treatment No Information Progress Notes * KELLEN GERMANDOB: [birth year] (44 yo F)Acc No.[id number]:03/31/2025 Progress Notes Patient: KELLEN HAMILTON Provider: Joni Quiroz MD :1980 A ge:44 Y S ex:Female Date:03/31/2025 Address:[address] [place] [address] [address] Pcp:Nini Ann Subjective: * Chief Complaints: * [...] 0 03/31/2025 Generated for Amando hauser/Marleni/Kristian on: 03:47 PM EDT
--- OUTSIDE RECORDS SUMMARY | 2025-07-15 15:48 | XMS_ITS | Patient Health Record ---
Author Organization [facility] Address [address] [place] [address] Care Team Providers Care Saddle Stitching Machine Operator Name Role Phone Nini Ann Primary Care Provider UnavailPresley Aguilera Unavailable [phone] Reason For Referral No Information Encounters Encounter Location Date Provider Diagnosis [facility] [address] [place] [address] 03/27/2025 Presley Quiroz Plan Of Treatment No Information Insurance Providers Payer Name Payer Address Payer Phone Subscriber Number Group Number Insured Name Patient Relationship to Insured Coverage Start Date Coverage End Date [facility] [address] [place] [address] [phone] [id number] KELLEN GERMAN Self - patient is the insured
== END 2025-07-15 12:31 | disposition home or self-care (01) ==
LOC: HO.MAMMO 12:30
PROVIDERS: PCP Internal Medicine; Visit Provider Obstetrics & Gynecology
DX: Z12.31 Encounter for screening mammogram for malignant neoplasm of breast (principal)
CPT/HCPCS: 77063; 77067

== ENCOUNTER → 2025-07-15 12:30 | Outpatient (BNV) | payer OTHER, SELFPAY | PROVIDERS: PCP Internal Medicine; Visit Provider Radiology Body Imaging | DX: Z12.31 Encounter for screening mammogram for malignant neoplasm of breast (principal) | CPT/HCPCS: 77063; 77067 ==

== ENCOUNTER 2025-08-26 14:27 | Outpatient (REF) | payer OTHER, SELFPAY ==
--- NOTE | ~2025-08-26 | US_ITS ---
EXAMINATION: US PELVIS TRANSABDOMINAL AND TRANSVAGINAL HISTORY: N93.9 - Abnormal uterine and vaginal bleeding, unspecified COMPARISON: Comparison is made with the prior examination dated 03/09/2021. TECHNIQUE: Transabdominal and endovaginal real-time 2D solo-scale ultrasound was performed. FINDINGS: Uterus: The uterus is normal in size, measuring 7.3 x 3.2 x 3.9 cm. Myometrium has a normal echotexture. No fibroids are identified. Endometrium: The endometrial stripe measures 3 mm in thickness. An IUD is seen in appropriate position in the endometrial cavity. Right ovary: The right ovary measures 3.5 x 2.0 x 3.8 cm. There is a 2.5 by 1.9 x 2.0 cm cyst. Left ovary: The left ovary measures 3.6 x 2.0 x 1.7 cm. There is a 1.4 x 0.9 x 1.2 cm mildly thick-walled cystic structure may represent a corpus luteum. Pelvic fluid: none. US/US pelvic and transvaginal IMPRESSION: IUD in appropriate position in the endometrial cavity. Bilateral ovarian cysts as described. Electronically signed by: Presley Lockett MD 08/26/2025 03:37 PM EST
== END 2025-08-26 14:28 | disposition home or self-care (01) ==
LOC: HO.US 14:27
PROVIDERS: PCP Internal Medicine; Visit Provider Obstetrics & Gynecology
DX: N93.9 Abnormal uterine and vaginal bleeding, unspecified (principal)
CPT/HCPCS: 76830; 76856

== ENCOUNTER → 2025-08-26 14:31 | Outpatient (BNV) | payer OTHER, SELFPAY | PROVIDERS: PCP Internal Medicine; Visit Provider Radiology Diagnostic Radiology | DX: N83.201 Unspecified ovarian cyst, right side (principal); N83.202 Unspecified ovarian cyst, left side; N93.9 Abnormal uterine and vaginal bleeding, unspecified | CPT/HCPCS: 76830; 76856 ==

== ENCOUNTER → 2025-09-06 19:30 | Outpatient (REF) | payer OTHER, SELFPAY | LOC: HO.SL 19:30 | PROVIDERS: PCP Internal Medicine; Visit Provider Psychiatry & Neurology Neurology | DX: G47.33 Obstructive sleep apnea (adult) (pediatric) (principal); G47.61 Periodic limb movement disorder | CPT/HCPCS: 95810 ==

== ENCOUNTER → 2025-09-06 22:12 | Outpatient (BNV) | payer OTHER, SELFPAY | PROVIDERS: PCP Internal Medicine; Visit Provider Internal Medicine | DX: G47.33 Obstructive sleep apnea (adult) (pediatric) (principal); G47.61 Periodic limb movement disorder | CPT/HCPCS: 95810 ==

== ENCOUNTER 2025-09-18 13:45 | Outpatient (AMB) | payer OTHER, SELFPAY ==
--- NOTE | 2025-09-18 13:49 | A.OFFVIS_ITS ---
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 Present (Shantell HERNANDEZ) Accompanied by: Self / Same As Patient Allergies No Known Allergies Allergy (Verified 09/18/25 13:53) Is last menstrual period known: No (mirena) HPI Comments Details: Presenting for EMB PFSH Medical History Migraines Screening for colon cancer Constipation BMI 39.0-39.9,adult Adjustment disorder Family planning Pulmonary embolism Hypothyroidism Fibromyalgia Surgical History History of cholecystectomy Gastric bypass status for obesity H/O abdominoplasty H/O breast reconstruction History of appendectomy Family History Mother CVD (cardiovascular disease) Bone cancer HTN (hypertension) Diabetes Thyroid disease Breast cancer Father Bone cancer HTN (hypertension) Diabetes Prostate cancer Brother HTN (hypertension) Social History Household Members: Spouse Housing: Apartment Alcohol intake: current Alcohol intake frequency: holidays/special occasions only Patient Tobacco Use Status: Never used Tobacco Current occupational status: unemployed Sexual orientation: Straight/Heterosexual Gender identity: Female Female Reproductive History Menstrual Age of Menarche: 12 control method: progestin IUCD Review of Systems Const All systems reviewed & are unremarkable except as noted in HPI and below Reports as per HPI and Reports no additional complaints GI Reports no additional complaints Reports no additional complaints Physical Exam Vital Signs: Last Vital Signs BP 116/70 09/18/25 13:52 BMI result Body Mass Index 34.3 Office Procedures Endometrial Biopsy Details: The patient was counseled regarding the indication and benefits of endometrial sampling to rule out endometrial pathology including not limited to endometrial hyperplasia or endometrial cancer and others; The alternatives (Either do nothing vs. hysteroscopy D&C) & the risks were discussed with the patient including but not limited: pain, uterine perforation, bleeding, infection, possible injury to bladder, bowel, ureter, possible need for blood transfusion with all its possible risks. The patient verbalized understanding all questions answered and signed consent. Urine test done in the office was negative The patient was placed into the dorsal lithotomy position; a speculum was inserted in the vagina. Using aseptic technique for the procedure, the cervix was cleansed with Betadine. The anterior lip of the cervix was grasped with a single tooth tenaculum. The uterus was sounded to 7 cm with a 4 mm Pipelle was used. Tissues samples were obtained and placed in formalin, in a patient labeled container and sent to the pathology department. At the end of the procedure, there was minimal bleeding noted The patient tolerated the procedure well and was discharged in good condition with the following instructions: Nothing in the vagina until the bleeding stops. No sex until the bleeding stops, to call if any of the following occurs: fever (>100.4), flu-like symptoms, abdominal pain, heavy bleeding, four smelling vaginal discharge. The patient was instructed to schedule a Follow up appointment in 2 weeks to discuss pathology results of the biopsy and treatment options. This note was generated with a voice recognition program. Some errors may have been overlooked during the review of this note. Sometimes these errors may affect the content or meaning of a given sentence. [id number] Biopsy Assessment & Plan Assessment & Plan (1) Abnormal uterine bleeding (AUB): Comment: On Mirena IUD Code(s): N93.9 - Abnormal uterine and vaginal bleeding, unspecified Category: Medical Plan: EMB done, see procedure note Orders: Orders AMB Endometrial Biopsy Today N93.9 - Abnormal uterine and vaginal bleeding, unspecified Coding Level of Care Code Procedure Only Diagnoses Abnormal uterine bleeding (AUB) N93.9 CPT Codes Endometrial Biopsy - CPT: 28342-[id number] Biopsy ([id number])
[2025-09-18 13:52] VITALS: BP 116/70; BMI 34.3
== END 2025-09-18 14:25 | disposition home or self-care (01) ==
LOC: HO.HWS 13:46
PROVIDERS: PCP Internal Medicine; Visit Provider Obstetrics & Gynecology
DX: Z32.02 Encounter for pregnancy test, result negative (principal); N93.9 Abnormal uterine and vaginal bleeding, unspecified
CPT/HCPCS: 58100

== ENCOUNTER 2025-09-18 13:45 | Outpatient (REF) | payer OTHER, SELFPAY | END 2025-09-18 13:46 | disposition home or self-care (01) | LOC: HO.LNP 13:45 | PROVIDERS: PCP Internal Medicine; Visit Provider Obstetrics & Gynecology | DX: N93.9 Abnormal uterine and vaginal bleeding, unspecified (principal); Z32.02 Encounter for pregnancy test, result negative | CPT/HCPCS: 58100; 81025; 88305 ==